=== PATIENT | male | born 1945 ===

== ENCOUNTER 2020-09-28 23:37 | Inpatient (IN) | payer MEDICARE, OTHER ==
[~2020-09-28] VITALS: Ht 177.8 cm; Wt 95.3 kg
[2020-09-29 02:03] LABS: BASOPHILS ABSOLUTE AUTO 0.02 K/mm3 (0.00-0.23); BASOPHILS PERCENT AUTO 0 % (0-2); EOSINOPHILS ABSOLUTE AUTO 0.02 K/mm3 (0.00-0.68); EOSINOPHILS PERCENT AUTO 0 % (0-6); Hematocrit 45.9 % (37.0-53.0); Hemoglobin 15.4 g/dL (13.5-17.5); IMMATURE GRAN ABSOLUTE AUTO 0.05 K/mm3 (0.00-0.10); IMMATURE GRAN PERCENT AUTO 0 % (0-1); LYMPHOCYTES ABSOLUTE AUTO 1.57 K/mm3 (0.84-5.20); LYMPHOCYTES PERCENT AUTO 11 % (21-46); MONOCYTES ABSOLUTE AUTO 0.73 K/mm3 (0.16-1.47); MONOCYTES PERCENT AUTO 5 % (4-13); Mean Corpuscular HGB 29.2 pg (26.0-34.0); Mean Corpuscular HGB Conc 33.6 g/dL (31.5-36.5); Mean Corpuscular Volume 87 fL (80-100); Mean Platelet Volume 9.6 fL (9.1-12.4); NEUTROPHILS ABSOLUTE AUTO 11.58 K/mm3 (1.96-9.15); NEUTROPHILS PERCENT AUTO 83 % (41-73); Platelet Count 219 K/mm3 (150-400); RDW Coefficient Variation 14.7 % (11.7-14.2); RDW Standard Deviation 47.2 fL (35.1-46.3); Red Blood Cell Count 5.28 M/mm3 (4.30-5.90); White Blood Cell Count 13.97 K/mm3 (4.00-11.30)
[2020-09-29 02:21] LABS: Alanine Aminotransfer (ALT/SGP 22 U/L (12-78); Albumin, Blood 4.2 g/dL (3.4-5.0); Albumin/Globulin Ratio 1.2 (0.8-1.8); Alk Phos 66 U/L (50-136); Anion Gap 8 mmol/L (6-16); Aspartate Aminotrans (AST/SGOT 13 U/L (12-37); Bilirubin, Total 0.6 mg/dL (0.1-1.0); Blood Urea Nitrogen 28 mg/dL (8-24); Bun/Creatinine Ratio 23.5 (12.0-20.0); CO2, Blood 23 mmol/L (21-32); Calcium, Blood 8.7 mg/dL (8.5-10.1); Chloride, Blood 106 mmol/L (98-108); Creatinine, Blood 1.19 mg/dL (0.60-1.20); Globulin, Blood 3.5 g/dL (2.2-4.0); Glomerular Filtration Rate >60 (60-); Glucose, Blood 157 mg/dL (70-99); Sodium, Blood 137 mmol/L (136-145); Total Protein, Blood 7.7 g/dL (6.4-8.2)
[2020-09-29] MEDS ORDERED: FAMO40 PO (02:43)
[2020-09-29] MEDS ORDERED: AMLO5 PO (02:44)
[2020-09-29] MEDS ORDERED: Crestor20 MG PO (02:44)
[2020-09-29] MEDS ORDERED: AMARYL1 M1 PO (02:44)
[2020-09-29] MEDS ORDERED: ENTRESTO 49 MG1 EACH PO (02:44)
[2020-09-29] MEDS ORDERED: FURO20 PO (02:45)
[2020-09-29] MEDS ORDERED: FINA5 PO (02:45)
[2020-09-29] MEDS ORDERED: Coreg12.5 MG PO (02:45)
[2020-09-29] MEDS ORDERED: OMEP20ER PO (02:45)
[2020-09-29] MEDS ORDERED: METF500 PO (02:46)
[2020-09-29] MEDS ORDERED: Flomax0.4 MG PO (02:46)
[2020-09-29] MEDS ORDERED: SITA25T2 PO (02:47)
[2020-09-29 02:52] LABS: Source, Urine Clean Catch
[2020-09-29 02:56] LABS: Bilirubin, Urine Neg (Neg); Blood, Urine 2+ (Neg); Glucose Qualitative, Urine 4+ (Neg); Ketones, Urine 3+ (Neg); Leukocyte Esterase, Urine Neg (Neg); Nitrite, Urine Neg (Neg); Protein, Urine 2+ (Neg); Specific Gravity, Urine 1.015 (1.003-1.022); Urobilinogen, Urine NORM (Normal)
[2020-09-29 03:00] LABS: Appearance, Urine Clear (Clear); Color, Urine Yellow (P-Yellow)
[2020-09-29 03:01] LABS: Bacteria Few /hpf; Red Blood Cells, Urine 0-2 /hpf (0-2); Squamous Epithelial Cells Not Seen /hpf (Few); White Blood Cells, Urine 0-2 /hpf (0-5)
--- NOTE | 2020-09-29 06:45 | NUR ---
PT ARRIVED TO FLOOR AT 0630 FROM ED VIA GURNEY. PIVOT TRANSFERRED TO BED, STEADY GAIT. A&OX4, PLEASANT. SON AT BEDSIDE, WENT HOME SHORTLY AFTER PT ARRIVAL. PT IN NO ACUTE DISTRESS, CURRENTLY ON 3L/NC; DENIES SOB. VS TAKEN,WNL. NS INFUSING AT 75ML/HR. HEAT PACK APPLIED TO ABD. REPORT GIVEN TO ROMEL MONAHAN.
[2020-09-29 10:17] LABS: BASOPHILS ABSOLUTE AUTO 0.02 K/mm3 (0.00-0.23); BASOPHILS PERCENT AUTO 0 % (0-2); EOSINOPHILS PERCENT AUTO 0 % (0-6); Hematocrit 44.8 % (37.0-53.0); Hemoglobin 14.6 g/dL (13.5-17.5); IMMATURE GRAN ABSOLUTE AUTO 0.06 K/mm3 (0.00-0.10); IMMATURE GRAN PERCENT AUTO 0 % (0-1); LYMPHOCYTES ABSOLUTE AUTO 1.46 K/mm3 (0.84-5.20); LYMPHOCYTES PERCENT AUTO 9 % (21-46); MONOCYTES ABSOLUTE AUTO 1.16 K/mm3 (0.16-1.47); MONOCYTES PERCENT AUTO 7 % (4-13); Mean Corpuscular HGB Conc 32.6 g/dL (31.5-36.5); Mean Corpuscular Volume 89 fL (80-100); Mean Platelet Volume 9.8 fL (9.1-12.4); NEUTROPHILS ABSOLUTE AUTO 13.82 K/mm3 (1.96-9.15); NEUTROPHILS PERCENT AUTO 84 % (41-73); Platelet Count 186 K/mm3 (150-400); RDW Coefficient Variation 14.9 % (11.7-14.2); RDW Standard Deviation 48.7 fL (35.1-46.3); Red Blood Cell Count 5.04 M/mm3 (4.30-5.90); White Blood Cell Count 16.52 K/mm3 (4.00-11.30)
[2020-09-29 10:36] LABS: Alanine Aminotransfer (ALT/SGP 14 U/L (12-78); Albumin, Blood 3.5 g/dL (3.4-5.0); Albumin/Globulin Ratio 1.1 (0.8-1.8); Alk Phos 55 U/L (50-136); Anion Gap 9 mmol/L (6-16); Aspartate Aminotrans (AST/SGOT 15 U/L (12-37); Bilirubin, Total 0.8 mg/dL (0.1-1.0); Blood Urea Nitrogen 21 mg/dL (8-24); Bun/Creatinine Ratio 21.5 (12.0-20.0); CO2, Blood 20 mmol/L (21-32); Calcium, Blood 8.1 mg/dL (8.5-10.1); Chloride, Blood 110 mmol/L (98-108); Creatinine, Blood 0.98 mg/dL (0.60-1.20); Globulin, Blood 3.3 g/dL (2.2-4.0); Glomerular Filtration Rate >60 (60-); Glucose, Blood 129 mg/dL (70-99); Potassium, Blood 3.9 mmol/L (3.5-5.5); Sodium, Blood 139 mmol/L (136-145); Total Protein, Blood 6.8 g/dL (6.4-8.2)
--- NOTE | 2020-09-29 17:00 | NUR ---
SHIFT SUMMARY PT WOKE FOR BS REPORT, JUST ARRIVING SHORTLY BEFORE START OF SHIFT. A&O, PLEASANT AND CO-OP. ADMITTED FOR POSSIBLE COLITIS. RLQ PAIN AND TENDERNESS, WHICH HAS INCREASED THRU OUT THE DAY. DR CORLEY IN TO SEE PT THIS AM. LATER PLACED ORDERS FOR GI CONSULT. DR BAUMAN NOTIFIED OF CONSULT; INFO GIVEN. PT UPDATED ON PLAN OF CARE. ABD SWOLLEN AND TENDER; " RIGHT SIDE IS THE WORST". USING URINAL AT BS. IVF'S INFUSING PER EMAR. PT'S SON COMING IN TO VISIT THIS AFTERNOON. CALL LT IN REACH. DENIED FURTHER NEEDS AT THIS TIME.
--- NOTE | 2020-09-29 21:15 | NUR ---
PHYSICIAN CORRESPONDENCE STATES 02/23 PAIN. ORDERS FOR IV FENT 25-50MCG Q4P. NEW ORDERS FOR FENT 25-50MCG Q2P AND TO PLACE ON CONT. BIOX.
[2020-09-30 02:47] LABS: BASOPHILS ABSOLUTE AUTO 0.04 K/mm3 (0.00-0.23); BASOPHILS PERCENT AUTO 0 % (0-2); EOSINOPHILS PERCENT AUTO 0 % (0-6); Hematocrit 43.8 % (37.0-53.0); Hemoglobin 14.7 g/dL (13.5-17.5); IMMATURE GRAN PERCENT AUTO 1 % (0-1); LYMPHOCYTES ABSOLUTE AUTO 1.53 K/mm3 (0.84-5.20); LYMPHOCYTES PERCENT AUTO 8 % (21-46); MONOCYTES ABSOLUTE AUTO 1.57 K/mm3 (0.16-1.47); MONOCYTES PERCENT AUTO 9 % (4-13); Mean Corpuscular HGB 29.5 pg (26.0-34.0); Mean Corpuscular HGB Conc 33.6 g/dL (31.5-36.5); Mean Corpuscular Volume 88 fL (80-100); Mean Platelet Volume 10.2 fL (9.1-12.4); NEUTROPHILS PERCENT AUTO 82 % (41-73); Platelet Count 206 K/mm3 (150-400); RDW Coefficient Variation 15.3 % (11.7-14.2); RDW Standard Deviation 49.4 fL (35.1-46.3); Red Blood Cell Count 4.99 M/mm3 (4.30-5.90); White Blood Cell Count 18.14 K/mm3 (4.00-11.30)
[2020-09-30 03:02] LABS: Albumin, Blood 3.3 g/dL (3.4-5.0); Anion Gap 10 mmol/L (6-16); Blood Urea Nitrogen 17 mg/dL (8-24); Bun/Creatinine Ratio 14.5 (12.0-20.0); CO2, Blood 19 mmol/L (21-32); Calcium, Blood 8.2 mg/dL (8.5-10.1); Chloride, Blood 109 mmol/L (98-108); Creatinine, Blood 1.17 mg/dL (0.60-1.20); Glomerular Filtration Rate >60 (60-); Glucose, Blood 171 mg/dL (70-99); Phosphorus, Blood 3.2 mg/dL (2.5-4.9); Potassium, Blood 3.8 mmol/L (3.5-5.5); Sodium, Blood 138 mmol/L (136-145)
--- NOTE | 2020-09-30 03:50 | NUR ---
PATIENT RECIEVED 450 ML OF CONTRAST BEFORE THIS RNs ARRIVED ON SHIFT. AT 0 ASKED TO DRINK SECOND BOTTLE OF CONTRAST AND AT [address] FINISH THE REMAINDER OF THE 450 ML. PATIENT HAD A TOTAL OF 900 ML OF CONTRAST.
--- NOTE | 2020-09-30 07:23 | NUR ---
SHIFT SUMMARY PATIENT TO PCU FROM MEDICAL FLOOR, BEDSIDE REPORT FROM MARGRET URENA. PATIENT TO ROOM @0158. PATIENT IS ALERT AND ORIENTED X4. COMPLAINING OF SEVERE ABDOMINAL PAIN, MEDICATED PER EMAR. PATIENT HAVING CONSISTANT RUNS OF VTACH, BP WOULD DROP DURING THIS TIME BUT RECOVER. PATIENT DENIED ANY CP/PRESSURE OR DISCOMFORT. EKG DONE AND PATIENT STARTED ON AMIODARONE. NG TUBE INSERTED BY NYA URENA. NG TUBE TO LOW INTERMITTEN SUCTION. PATIENT URINATING IN URINAL. 02 SATS 94% ON AIRVO. CALL LIGHT IN REACH.
[2020-09-30] MEDS ORDERED: ASPI81CH PO (12:42)
[2020-09-30] MEDS ORDERED: JARDIANCE10 MG PO (12:42)
[2020-09-30] MEDS ORDERED: VITAMIN D325 MC3 PO (12:43)
[2020-09-30] MEDS ORDERED: B-121000 MC7 PO (12:47)
[2020-09-30] MEDS ORDERED: NITR.4SL SL (12:48)
--- NOTE | 2020-09-30 18:10 | NUR ---
SHIFT SUMMARY PT ALERT AND ORIENTED. VS STABLE. O2 SATS REMAIN ABOVE 90% ON AIRVO WITH 60L AND 60%FIO2. BP STABLE. PT HAS NOT HAD ANY RUNS OF VTACH SINCE 829. ABD SEVERELY DISTENDED AND TENDER TO PALPATION. PLAN FOR PT TO START PREP FOR COLONOSCOPY TONIGHT. NG TUBE REMOVED THIS AFTERNOON AND DID NOT HAVE ANY OUTPUT THIS SHIFT. PT ABLE TO VOID IN URINAL. AMIO GTT INFUSING PER ORDERS. WILL CONTINUE TO MONITOR CLOSELY AND REPORT TO ONCOMING RN. CALL LIGHT IN REACH.
--- NOTE | 2020-10-01 02:24 | NUR ---
PATIENT C/O SEVERE CRAMPING, NAUSEA REFUSING TO COMPLETE THE GOLYTE NOC ONCJOSE MD WAS CALLED AND NO FURTHER INTERVENTIONS AT THIS TIME, CONTROL PAIN WITH CURRENTLY PRN PAIN MEDICATION.
[2020-10-01 03:55] LABS: BASOPHILS ABSOLUTE AUTO 0.03 K/mm3 (0.00-0.23); BASOPHILS PERCENT AUTO 0 % (0-2); EOSINOPHILS ABSOLUTE AUTO 0.01 K/mm3 (0.00-0.68); EOSINOPHILS PERCENT AUTO 0 % (0-6); Hematocrit 45.1 % (37.0-53.0); Hemoglobin 14.6 g/dL (13.5-17.5); IMMATURE GRAN ABSOLUTE AUTO 0.13 K/mm3 (0.00-0.10); IMMATURE GRAN PERCENT AUTO 1 % (0-1); LYMPHOCYTES ABSOLUTE AUTO 1.47 K/mm3 (0.84-5.20); LYMPHOCYTES PERCENT AUTO 8 % (21-46); MONOCYTES PERCENT AUTO 9 % (4-13); Mean Corpuscular HGB 28.9 pg (26.0-34.0); Mean Corpuscular HGB Conc 32.4 g/dL (31.5-36.5); Mean Corpuscular Volume 89 fL (80-100); Mean Platelet Volume 10.1 fL (9.1-12.4); NEUTROPHILS ABSOLUTE AUTO 14.88 K/mm3 (1.96-9.15); NEUTROPHILS PERCENT AUTO 82 % (41-73); Platelet Count 208 K/mm3 (150-400); RDW Coefficient Variation 15.5 % (11.7-14.2); RDW Standard Deviation 50.6 fL (35.1-46.3); Red Blood Cell Count 5.06 M/mm3 (4.30-5.90); White Blood Cell Count 18.12 K/mm3 (4.00-11.30)
[2020-10-01 04:21] LABS: Alanine Aminotransfer (ALT/SGP 15 U/L (12-78); Albumin, Blood 3.1 g/dL (3.4-5.0); Albumin/Globulin Ratio 0.8 (0.8-1.8); Alk Phos 60 U/L (50-136); Anion Gap 9 mmol/L (6-16); Aspartate Aminotrans (AST/SGOT 8 U/L (12-37); Bilirubin, Total 0.9 mg/dL (0.1-1.0); Blood Urea Nitrogen 23 mg/dL (8-24); Bun/Creatinine Ratio 22.8 (12.0-20.0); CO2, Blood 22 mmol/L (21-32); Calcium, Blood 8.7 mg/dL (8.5-10.1); Chloride, Blood 105 mmol/L (98-108); Creatinine, Blood 1.01 mg/dL (0.60-1.20); Glomerular Filtration Rate >60 (60-); Glucose, Blood 170 mg/dL (70-99); Potassium, Blood 3.6 mmol/L (3.5-5.5); Sodium, Blood 136 mmol/L (136-145); Total Protein, Blood 7.1 g/dL (6.4-8.2)
[2020-10-01 04:33] LABS: C-REACTIVE PROTEIN, EXT RANGE >19.000 mg/dL (0.000-0.300)
[2020-10-01 04:52] LABS: SARS-Cov-2 (COVID-19) PCR, MMC NEGATIVE (NEGATIVE)
--- NOTE | 2020-10-01 09:10 | NUR ---
DRANK FIRST BOTTLE BOWEL PREP.
--- NOTE | 2020-10-01 10:00 | NUR ---
SECOND BOTTLE OF BOWEL PREP DRANK BY PT.
[2020-10-01 12:32] LABS: International Normalized Ratio 1.12
--- NOTE | 2020-10-01 14:58 | NUR ---
HEPARIN BEING HELD UNTIL AFTER ENDOSCOPE PER GI DOCTOR.
--- NOTE | 2020-10-01 15:03 | NUR ---
PT TRANSFERED TO [facility] VIA GURNY FROM PCU. PT WITH O2 SATS 87% ON NONREBREATHER 10 LPM. BP 93/58. HR 82. DR. JAVIER ASSESSING PT TO SEE IF HE IS STABEL TO PROCEED WITH PROCEDURE.
--- NOTE | 2020-10-01 15:16 | NUR ---
DR. JAVIER CONSULTED WITH DR. BUSTOS AND PT'S PROCEDURE IS CANCELLED UNTIL HIS RESPIRATORY SYSTEM IS STABLIZED.
--- NOTE | 2020-10-01 15:20 | NUR ---
10/01/20 1520 Ml Mariscal PROCEDURE CANCELLED DUE TO PT NOTED TO HAVE PE PER CT.
--- NOTE | 2020-10-01 16:37 | NUR ---
SHIFT SUMMARY; ASSUMED CARE AT 0700. A/A/OX4. AIR VO IN PLACE AT 60L 60% MAINTAING SATS OF 92-93%. ABDOMEN DISTENDED AND FIRM. PT REPORTS NO BM X4 DAYS. DID NOT COMPLETE GOLYTLY PREP ORDERED. PT STATES CAUSED CRAMPING, PAIN AND COULD NOT TOLERATE DRINKING IT. GI NOTIFIED, SUREPREP ORDERED. PT AGREES TO DRINK. BOWEL PREP COMPLETE AT 1000. UP TO COMMODE FOR LARGE BM IN MID MORNING. SEVERAL BM THROUGHOUT DAY REMAINING SOLID TO BROWN LOOSE STOOL. CT SCAN COMPLETED FOR PE STUDY. NOTIFIED OF PE BY DR. DALE. HEPARIN ORDERED. PER DR. DALE NOTIFIED GI DOCTOR WHO REQUESTED HOLDING HEPARIN UNTIL ENDO COMPLETE. TAKEN TO DAY SURGERY FOR SCOPE AT 1445. NOTIFIED BY DAY SURGERY STAFF AT APPROX 1530 THAT THEY WERE UNABLE TO DO PROCEDURE DUE TO RESPIRATORY STATUS. PT RETURNED TO ROOM WITH SATS 87% AND LABORED BREATHING. RT TO ROOM. INCREASED AIR VO TO 90% ON 60L. TRANSFER TO ICU INTIATED. DR. EDGE TO ROOM. REPORT GIVEN TO ROMEL WAN. TRANSFERRED TO ICU 15.
--- NOTE | 2020-10-01 16:40 | NUR ---
TRANSFER TO ICU BEDSIDE REPORT RECIEVED. PT ARRIVED TO ICU 15 VIA BED AT 1610. PT IS AWAKE, ALERT, AND ORIENTED. PT ON AIRVO 60L, FIO2 95%. PT SPO2 88-90'S. LS COURSE THROUGHOUT. BP STABLE. DR MCKEON AT BEDSIDE. EKG DONE, VENOUS DUPLEX IN PROGRESS, ECHO IN PROGRESS. HEPARIN INFUSING AT 15 UNITS/KG/HR. WILL CONTINUE TO MONITOR.
--- NOTE | 2020-10-01 19:29 | NUR ---
INTUBATION/SHIFT SUMMARY PT CONTINUED TO BE HYPOXIC WITH INCREASED WORK OF BREATHING AFTER TRANSFER TO ICU. DISCUSSION BETWEEN DR MCKEON, DR DE LA TORRE, AND DR MENDIOLA. DECISION MADE TO INTUBATE PT. PT MED WITH 20 MG ETOMIDATE, 20 MG ROCURONIUM, AND 80 MCG OF PROPOFOL AT 1808. 8.0 ETT PLACED AT 24 CM AT THE LIP BY DR MCKEON. BILAT BREATH SOUNDS AND CO2 COLOR CHANGE NOTED. LEVOPHED STARTED AT 10 MCG/MIN THROUGH PERIPHERAL IV. CENTRAL LINE THEN PLACED TO RIGHT IJ. OGT PLACED. CHEST XRAY CONFIRMATION DONE. PT REMAINS HYPOTENSIVE WITH SBP 60'S. DR MCKEON AT BEDSIDE. LEVOPHED TITRATED UP TO 30 MCG/MIN AT THIS TIME. LR BOLUS INFUSING, HEPARIN GTT INFUSING, AND PROPOFOL INFUSING. SEE FLOWSHEET FOR GTT TITRATIONS. PT WITH INTERMITTENT RUNS OF VTACH. DR MCKEON AWARE. SBW RESTRAINTS IN PLACE. PT MOVING ALL EXTREMITIES. BEDSIDE REPORT GIVEN TO NOC SHIFT RN.
--- NOTE | 2020-10-01 20:12 | NUR ---
ASSUMPTION OF CARE PT INTUBATED AND SEDATED. VENT SETTINGS AC 14/580/10/100%. GTTS INFUSING: PROPOFOL @ 50 MCG, LEVOPHED @ 24 MCG, VASOPRESSIN @ 2.4 ML/HR, HEPARIN @ 15 UNITS. HR 50'S, SBP 140'S, O2 SAT 95%. STREETER PLACED THIS SHIFT, PATENT AND DRAINING YELLOW URINE TO GRAVITY. WHEN PT WAKES, ATTEMPTS TO SIT UP IN BED AND ATTEMPTS TO REACH FOR ETT. PT NOT FOLLOWING ANY PURPOSEFUL COMMANDS AT THIS TIME, WILL CONTINUE TO MONITOR.
--- NOTE | 2020-10-01 20:57 | NUR ---
UPDATE SPOKE WITH DR. MCKEON REGARDING AMIODARONE BEING ON STANDBY DUE TO HR 53-55 WITH OCASSIONAL PAUSES, NO ECTOPY NOTICED SINCE INCREASE IN SEDATION; OK PER DR. MCKEON TO CONTINUE ON STANDBY. NOTIFIED ABOUT INCREASE IN SEDATION DUE TO AGITATION AND ATTEMPTING TO GRAB ETT. ORDER PLACED FOR 1L LR BOLUS, THEN NO MORE FLUIDS. WILL DRAW STAT 2200 LABS AND TOUCH BASE AFTER RESULTED.
[2020-10-01 22:08] LABS: Base Excess Venous -5.5 mmol/L; Bicarbonate Venous 20.1 mmol/L (24.0-30.0); PO2 Venous 53.2 mmHg (38-42); pH Blood Venous 7.34 (7.34-7.37)
[2020-10-01 22:15] LABS: BASOPHILS ABSOLUTE AUTO 0.03 K/mm3 (0.00-0.23); BASOPHILS PERCENT AUTO 0 % (0-2); EOSINOPHILS ABSOLUTE AUTO 0.01 K/mm3 (0.00-0.68); EOSINOPHILS PERCENT AUTO 0 % (0-6); Hematocrit 39.5 % (37.0-53.0); Hemoglobin 13.2 g/dL (13.5-17.5); IMMATURE GRAN ABSOLUTE AUTO 0.24 K/mm3 (0.00-0.10); IMMATURE GRAN PERCENT AUTO 1 % (0-1); LYMPHOCYTES ABSOLUTE AUTO 1.92 K/mm3 (0.84-5.20); LYMPHOCYTES PERCENT AUTO 10 % (21-46); MONOCYTES ABSOLUTE AUTO 2.18 K/mm3 (0.16-1.47); MONOCYTES PERCENT AUTO 12 % (4-13); Mean Corpuscular HGB 29.1 pg (26.0-34.0); Mean Corpuscular HGB Conc 33.4 g/dL (31.5-36.5); Mean Corpuscular Volume 87 fL (80-100); Mean Platelet Volume 10.3 fL (9.1-12.4); NEUTROPHILS ABSOLUTE AUTO 14.56 K/mm3 (1.96-9.15); NEUTROPHILS PERCENT AUTO 77 % (41-73); Platelet Count 291 K/mm3 (150-400); RDW Coefficient Variation 15.6 % (11.7-14.2); RDW Standard Deviation 49.7 fL (35.1-46.3); Red Blood Cell Count 4.53 M/mm3 (4.30-5.90); White Blood Cell Count 18.94 K/mm3 (4.00-11.30)
[2020-10-01 22:36] LABS: Alanine Aminotransfer (ALT/SGP 13 U/L (12-78); Albumin, Blood 2.5 g/dL (3.4-5.0); Albumin/Globulin Ratio 0.8 (0.8-1.8); Alk Phos 54 U/L (50-136); Anion Gap 9 mmol/L (6-16); Aspartate Aminotrans (AST/SGOT 12 U/L (12-37); Bilirubin, Total 0.8 mg/dL (0.1-1.0); Blood Urea Nitrogen 35 mg/dL (8-24); Bun/Creatinine Ratio 28.5 (12.0-20.0); CO2, Blood 24 mmol/L (21-32); Calcium, Blood 8.1 mg/dL (8.5-10.1); Chloride, Blood 108 mmol/L (98-108); Creatinine, Blood 1.23 mg/dL (0.60-1.20); Globulin, Blood 3.3 g/dL (2.2-4.0); Glomerular Filtration Rate >60 (60-); Glucose, Blood 285 mg/dL (70-99); Magnesium, Blood 2.3 mg/dL (1.6-2.4); Potassium, Blood 3.3 mmol/L (3.5-5.5); Sodium, Blood 141 mmol/L (136-145); Total Protein, Blood 5.8 g/dL (6.4-8.2); Troponin I <0.015 ng/mL (0.000-0.040)
--- NOTE | 2020-10-01 22:56 | NUR ---
UPDATE SPOKE WITH DR. MCKEON AFTER STAT 2200 LABS RESULTED. NEW ORDERS PLACED FOR 40 mEq OF POTASSIUM, ELECTROLYTE PROTOCOL, AND PHOS TO BE ADDED TO AM LABS. PER DR. MCKEON NO WEANING IN AM.
--- NOTE | 2020-10-02 05:04 | NUR ---
SHIFT SUMMARY PT REMAINS INTUBATED/SEDATED. WHEN SEDATION IS DECREASED PT GETS VERY AGITATED, ATTEMPTING TO SIT UP IN BED TO REACH FOR ETT. PT INTERMITTENTLY FOLLOWS SOME COMMANDS, RESPONDS TO VERBAL STIMULI. RECTAL TUBE PLACED AFTER MULTIPLE WATERY STOOLS. TEMP STREETER PATENT AND DRAINING TO GRAVITY. HR 40-50'S WITH OCASSIONAL ECTOPY, HAD A FEW RUNS OF VTACH DURING SHIFT; AMIODARONE ON STANDBY. LEVOPHED AT 10 MCG AND VASOPRESSIN AT 0.04 MCG TO MAINTAIN SBP >90. VENT SETTINGS AC 14/580/10/70%, SPO2 94%. 80 mEq KCL GIVEN THIS SHIFT. PROPOFOL INFUSING AT 50 MCG AND HEPARIN AT 12 UNITS.
[2020-10-02 05:10] LABS: BASOPHILS ABSOLUTE AUTO 0.03 K/mm3 (0.00-0.23); BASOPHILS PERCENT AUTO 0 % (0-2); EOSINOPHILS ABSOLUTE AUTO 0.05 K/mm3 (0.00-0.68); EOSINOPHILS PERCENT AUTO 0 % (0-6); Hematocrit 39.5 % (37.0-53.0); Hemoglobin 13.1 g/dL (13.5-17.5); IMMATURE GRAN PERCENT AUTO 1 % (0-1); LYMPHOCYTES ABSOLUTE AUTO 2.49 K/mm3 (0.84-5.20); LYMPHOCYTES PERCENT AUTO 16 % (21-46); MONOCYTES ABSOLUTE AUTO 1.61 K/mm3 (0.16-1.47); MONOCYTES PERCENT AUTO 10 % (4-13); Mean Corpuscular HGB 29.4 pg (26.0-34.0); Mean Corpuscular HGB Conc 33.2 g/dL (31.5-36.5); Mean Corpuscular Volume 89 fL (80-100); Mean Platelet Volume 10.4 fL (9.1-12.4); NEUTROPHILS ABSOLUTE AUTO 11.41 K/mm3 (1.96-9.15); NEUTROPHILS PERCENT AUTO 73 % (41-73); Platelet Count 279 K/mm3 (150-400); RDW Coefficient Variation 15.7 % (11.7-14.2); RDW Standard Deviation 51.3 fL (35.1-46.3); Red Blood Cell Count 4.46 M/mm3 (4.30-5.90); White Blood Cell Count 15.69 K/mm3 (4.00-11.30)
[2020-10-02 05:24] LABS: Alanine Aminotransfer (ALT/SGP 16 U/L (12-78); Albumin, Blood 2.6 g/dL (3.4-5.0); Albumin/Globulin Ratio 0.8 (0.8-1.8); Alk Phos 57 U/L (50-136); Anion Gap 11 mmol/L (6-16); Aspartate Aminotrans (AST/SGOT 10 U/L (12-37); Bilirubin, Total 0.5 mg/dL (0.1-1.0); Blood Urea Nitrogen 34 mg/dL (8-24); Bun/Creatinine Ratio 29.3 (12.0-20.0); CO2, Blood 21 mmol/L (21-32); Calcium, Blood 8.1 mg/dL (8.5-10.1); Chloride, Blood 108 mmol/L (98-108); Creatinine, Blood 1.16 mg/dL (0.60-1.20); Globulin, Blood 3.3 g/dL (2.2-4.0); Glomerular Filtration Rate >60 (60-); Glucose, Blood 278 mg/dL (70-99); Phosphorus, Blood 2.3 mg/dL (2.5-4.9); Potassium, Blood 3.1 mmol/L (3.5-5.5); Sodium, Blood 140 mmol/L (136-145); Total Protein, Blood 5.9 g/dL (6.4-8.2)
--- NOTE | 2020-10-02 10:26 | NUR ---
ASSUMPTION OF CARE ASSUMED CARE OF THIS PT. PT REMAINS INTUBATED WITH VENT SETTINGS AC 14/. CURRENTLY RECEIVING HEPARIN 15UNITS/KG/HR, LEVOPHED 9MCG/MIN, VASOPRESSIN 0.04UNITS/MIN, AND PROPOFOL 50MCG/KG/MIN. PT IN BILAT SOFT WRIST RESTRAINTS. OPENS EYES TO VERBAL STIMULI, ABLE TO SQUEEZE HANDS. DR HOWELL AT BEDSIDE FOR EVAL, DECREASED FIO2 TO 50%. PT TOLERATING WELL. SEE SHIFT ASSESSMENT.
--- NOTE | 2020-10-02 14:01 | NUR ---
SPOKE WITH PT'S AND UPDATED HER WITH PT STATUS AND PLAN OF CARE. PT'S CONCERNED ABOUT PT'S PROGRESS AND STATES SHE IS "45 MINUTES FROM THE HOSPITAL" AND WISHES TO SPEAK WITH PHYSICIAN. THIS NURSE WILL RELAY MESSAGE PHYSICIAN IS AVAILABLE.
--- NOTE | 2020-10-02 15:17 | NUR ---
PT'S AND STEP-DAUGHTER AT BEDSIDE. DR. MCKEON UPDATING FAMILY.
--- NOTE | 2020-10-02 18:02 | NUR ---
SHIFT SUMMARY PT REMAINS INTUBATED AT THIS TIME. VENT SETTINGS AC 14/580/8/45. PT OPENS EYES WHEN REPOSITIONING AND TO SOME VERBAL STIMULI. PT RECEIVING HEPARIN 15UNITS/KG/HR, LEVOPHED 6MCG/MIN, VASOPRESSIN 0.04UNITS/MIN, AND PROPOFOL 50MCG/KG/MIN. PT APPEARS COMFORTABLE AT THIS TIME. CBGS HAVE BEEN IN 200S AND HAS BEEN GIVEN INSULIN PER SLIDING SCALE. ABDOMEN REMAINS DISTENDED AND FIRM. STREETER IN PLACE AND DRAINING DARK YELLOW URINE WITH SEDIMENT. SHIFT OUTPUT OF 1200ML. RECTAL TUBE IN PLACE. AND STEPDAUGHTER AT BEDSIDE AND UPDATED ON CONDITION AND PLAN OF CARE BY DR HOWELL. PLAN TO WEAN PT OFF LEVOPHED AND ATTEMPT SPONTANEOUS BREATHING TRIAL IN AM. WILL REPORT TO ONCOMING RN.
--- NOTE | 2020-10-02 19:50 | NUR ---
ASSUMPTION OF CARE PT INTUBATED AND SEDATED. VENT SETTINGS AC 14/580/8/40%. OPENS EYES TO VERBAL STIMULI AND SQUEEZES HANDS TO COMMAND. CURRENTLY RECEIVING HEPARIN @ 15 UNITS/KG/HR, VASOPRESSIN @ 0.04 UNITS/MIN, LEVOPHED @ 6 MCG/KG/MIN, PROPOFOL @ 50 MCG/KG/MIN, AND TKO NS. STREETER PATENT AND DRAINING TO GRAVITY. RECTAL TUBE STILL IN PLACE. HR 40-50'S, SBP >90, SPO2 >90%.
[2020-10-03 04:17] LABS: BASOPHILS ABSOLUTE AUTO 0.03 K/mm3 (0.00-0.23); BASOPHILS PERCENT AUTO 0 % (0-2); EOSINOPHILS ABSOLUTE AUTO 0.15 K/mm3 (0.00-0.68); EOSINOPHILS PERCENT AUTO 2 % (0-6); Hematocrit 36.1 % (37.0-53.0); IMMATURE GRAN ABSOLUTE AUTO 0.05 K/mm3 (0.00-0.10); IMMATURE GRAN PERCENT AUTO 1 % (0-1); LYMPHOCYTES PERCENT AUTO 21 % (21-46); MONOCYTES ABSOLUTE AUTO 1.15 K/mm3 (0.16-1.47); MONOCYTES PERCENT AUTO 12 % (4-13); Mean Corpuscular HGB 29.3 pg (26.0-34.0); Mean Corpuscular HGB Conc 33.2 g/dL (31.5-36.5); Mean Corpuscular Volume 88 fL (80-100); Mean Platelet Volume 10.2 fL (9.1-12.4); NEUTROPHILS ABSOLUTE AUTO 6.11 K/mm3 (1.96-9.15); NEUTROPHILS PERCENT AUTO 64 % (41-73); Platelet Count 225 K/mm3 (150-400); RDW Coefficient Variation 15.9 % (11.7-14.2); RDW Standard Deviation 51.8 fL (35.1-46.3); Red Blood Cell Count 4.09 M/mm3 (4.30-5.90); White Blood Cell Count 9.49 K/mm3 (4.00-11.30)
[2020-10-03 04:38] LABS: Alanine Aminotransfer (ALT/SGP 15 U/L (12-78); Albumin, Blood 2.4 g/dL (3.4-5.0); Albumin/Globulin Ratio 0.7 (0.8-1.8); Alk Phos 51 U/L (50-136); Anion Gap 8 mmol/L (6-16); Aspartate Aminotrans (AST/SGOT 15 U/L (12-37); Bilirubin, Total 0.4 mg/dL (0.1-1.0); Blood Urea Nitrogen 26 mg/dL (8-24); Bun/Creatinine Ratio 27.3 (12.0-20.0); CO2, Blood 25 mmol/L (21-32); Calcium, Blood 7.8 mg/dL (8.5-10.1); Chloride, Blood 107 mmol/L (98-108); Creatinine, Blood 0.95 mg/dL (0.60-1.20); Globulin, Blood 3.3 g/dL (2.2-4.0); Glomerular Filtration Rate >60 (60-); Glucose, Blood 206 mg/dL (70-99); Magnesium, Blood 2.4 mg/dL (1.6-2.4); Phosphorus, Blood 2.8 mg/dL (2.5-4.9); Potassium, Blood 2.9 mmol/L (3.5-5.5); Sodium, Blood 140 mmol/L (136-145); Total Protein, Blood 5.7 g/dL (6.4-8.2)
--- NOTE | 2020-10-03 07:31 | NUR ---
SHIFT SUMMARY PT REMAINS INTUBATED AND SEDATED. VENT SETTINGS AC 14/580/8/40%. PT CURRENTLY RECEIVING PROPOFOL @ 50 MCG, HEPARIN @ 15 UNITS, VASOPRESSIN @ 0.04 UNITS/MIN. LEVOPHED HAS BEEN ON STANDBY SINCE 214. HR HAS REMAINED 40-50'S WITH OCASSIONAL ECTOPY AND OCASSIONAL 3-4 BEAT RUNS OF VTACH. PT ABLE TO FOLLOW COMMANDS THROUGHOUT SHIFT.
--- NOTE | 2020-10-03 12:45 | NUR ---
REASSESSMENT PT REMAINS INTUBATED AND SEDATED. WITH SEDATION HE STILL WAKES UP EASILY, FOLLOWS SIMPLE COMMANDS. HIS LUNGS GOT WHEEZY LATE THIS MORNING, RT AWARE AND GOT TREATMENTS FOR PT. PT HAD 2 EPISODES THIS MORNING WHERE HIS OXYGEN SATURATIONS DROPPED TO 80% WITHOUT ANY COUGHING OR SOMETHING PROVOKING IT. REQUIRED OXYGEN TO BE TURNED UP TO 60% fio2 TO RECOVER. CURRENTLY TURNED DOWN TO 55%. PT IS SB WITH PVCs. VASOPRESSIN WAS OFF FOR ABOUT 2 HOURS WITH BP STABLE BEFORE IT DROPPED AGAIN SO VASOPRESSIN RESTARTED. ABDOMEN REMAINS DISTENDED, SOFT, VERY HYPOACTIVE BOWEL TONES. OG TO lis WHEN NOT CLAMPED FOR MED ADMINISTRATION. RECTAL TUBE WITH LIQUID STOOL. STREETER WITH CL YELLOW URINE. PT'S AT THE BEDSIDE CURRENTLY. UPDATED HER ON PLAN OF CARE. CONTINUING TO MONITOR.
--- NOTE | 2020-10-03 18:38 | NUR ---
SHIFT SUMMARY PT REMAINED INTUBATED AND SEDATED THIS SHIFT. OXYGEN INITIALLY HAD TO BE TITRATED UP THIS MORNING, BUT WAS TITRATED BACK DOWN THIS AFTERNOON. HE HAD A MODERATE AMT OF THICK RAMIREZ SPUTUM THIS AFTERNOON. ETT REPOSITIONED THIS AFTERNOON BY RT PER DR. MCKEON'S INSTRUCTIONS. LUNGS WERE CLEAR THIS EVENING. SINUS SULLY WITH RATE IN THE 50S. VASOPRESSIN INFUSING PT DIDN'T TOLERATE HAVING IT TURNED OFF. OG TO LIS THIS AFTERNOON. ABDOMEN REMAINS DISTENDED, SLIGHTLY FIRMER THIS EVENING COMPARED TO THIS MORNING. LIQUID STOOL IN RECTAL TUBE. UPDATED PT'S MULTIPLE TIMES THROUGHOUT THE SHIFT. ALSO SPENT ABOUT 15 MINUTES ON THE PHONE SPEAKING WITH PT'S STEPDAUGHTER ANSWERING HER QUESTIONS. DR. MCKEON ALSO SPOKE ON THE PHONE WITH HER SEPARATELY.
--- NOTE | 2020-10-03 20:00 | NUR ---
ASSUMED CARE OF PT AT 1915. REPORT RECEIVED. PT PRESENTS IN BED VENTED, - AC 14, Tv 580, FIO2 45 %, PEEP 5. PT TOLERATING THIS WELL WITH 50 MCG'S PROPOFOL/KG/MIN. VASOPRESSIN INFUSING WHICH ALLOWS MAP > 60. LEVOPHED REMAINS ON STANDBY. WILL REVIEW CHART AND PLAN OF CARE FOR THIS PT.
--- NOTE | 2020-10-04 00:08 | NUR ---
FULL BEDBATH DONE FOR THIS PT. NOTED: HAS HAD SOME LEAKAGE AROUND [facility]. THIS CLEANED. SECONDARY TO CLAY AREA STARTING TO HAVE SOME BLANCHABLE REDNESS. PLACED MEPILEX DRESSING PLACED OVER AREA FOR PROTECTION. FIO2 PER VENT HAS BEEN DECREASED TO 40 PERCENT. PT MAINTAINS > 90 PERCENT SATURATION. HAVE PLACED VASOPRESSIN ON HOLD. BLOOD PRESSURES HAVE BEEN SOMEWHAT LOW BUT ADEQUATE. PT'S DAUGHTER HAS CALLED IN TO CHECK ON PT SEVERAL TIMES THIS NIGHT. UPDATES GIVEN. WILL CONTINUE TO MONITOR PT,
--- NOTE | 2020-10-04 03:58 | NUR ---
REPORT GIVEN TO ROMEL FONG. PT TO TRANSFER TO ROOM 310 UNDER MEDICAL FLOOR STATUS.
[2020-10-04 04:58] LABS: BASOPHILS ABSOLUTE AUTO 0.02 K/mm3 (0.00-0.23); BASOPHILS PERCENT AUTO 0 % (0-2); EOSINOPHILS ABSOLUTE AUTO 0.21 K/mm3 (0.00-0.68); EOSINOPHILS PERCENT AUTO 2 % (0-6); Hematocrit 35.9 % (37.0-53.0); Hemoglobin 11.8 g/dL (13.5-17.5); IMMATURE GRAN ABSOLUTE AUTO 0.05 K/mm3 (0.00-0.10); IMMATURE GRAN PERCENT AUTO 1 % (0-1); LYMPHOCYTES ABSOLUTE AUTO 1.64 K/mm3 (0.84-5.20); LYMPHOCYTES PERCENT AUTO 19 % (21-46); MONOCYTES ABSOLUTE AUTO 1.09 K/mm3 (0.16-1.47); MONOCYTES PERCENT AUTO 13 % (4-13); Mean Corpuscular HGB 29.2 pg (26.0-34.0); Mean Corpuscular HGB Conc 32.9 g/dL (31.5-36.5); Mean Corpuscular Volume 89 fL (80-100); Mean Platelet Volume 9.7 fL (9.1-12.4); NEUTROPHILS ABSOLUTE AUTO 5.57 K/mm3 (1.96-9.15); NEUTROPHILS PERCENT AUTO 65 % (41-73); Platelet Count 208 K/mm3 (150-400); RDW Coefficient Variation 15.8 % (11.7-14.2); RDW Standard Deviation 51.6 fL (35.1-46.3); Red Blood Cell Count 4.04 M/mm3 (4.30-5.90); White Blood Cell Count 8.58 K/mm3 (4.00-11.30)
[2020-10-04 05:17] LABS: Alanine Aminotransfer (ALT/SGP 13 U/L (12-78); Albumin, Blood 2.2 g/dL (3.4-5.0); Albumin/Globulin Ratio 0.6 (0.8-1.8); Alk Phos 48 U/L (50-136); Anion Gap 7 mmol/L (6-16); Aspartate Aminotrans (AST/SGOT 15 U/L (12-37); Bilirubin, Total 0.5 mg/dL (0.1-1.0); Blood Urea Nitrogen 17 mg/dL (8-24); Bun/Creatinine Ratio 20.9 (12.0-20.0); CO2, Blood 23 mmol/L (21-32); Calcium, Blood 7.8 mg/dL (8.5-10.1); Chloride, Blood 112 mmol/L (98-108); Creatinine, Blood 0.81 mg/dL (0.60-1.20); Globulin, Blood 3.5 g/dL (2.2-4.0); Glomerular Filtration Rate >60 (60-); Glucose, Blood 154 mg/dL (70-99); Potassium, Blood 3.2 mmol/L (3.5-5.5); Sodium, Blood 142 mmol/L (136-145); Total Protein, Blood 5.7 g/dL (6.4-8.2)
--- NOTE | 2020-10-04 06:36 | NUR ---
HAVE BEEN ABLE TO STOP THE VASOPRESSIN WHEREAS BLOOD PRESSURES REMAIN WNL. MAP >60. SEDATION VACATION DONE EARLIER IN NIGHT. PT DOES BECOME ANXIOUS DOES REACH TOWARDS HIS ETT WHEN RESTRAINTS REMOVED. REDIRECTED PT. HEPARIN DRIP CONTINUES PER PHARMACY. NO S/S BLEEDING. KENY HAS 400 ML WATERY BROWN STOOL. WILL CONTINUE TO MONITOR PT, AND WILL REPORT OFF TO ONCOMING RN.
--- NOTE | 2020-10-04 08:00 | NUR ---
INITIAL ASSESSMENT PATIENT INTUBATED AND SEDATED. PATIENT RESPONDING TO VERBAL STIMULI WITH OPENING OF EYES. NOT TRACKING OR FOLLOWING ANY SIMPLE COMMANDS AT THIS TIME. PATIENT HAS WEAK, GROSS MOVEMENTS. PATIENT AFEBRILE. NO SIGNS OF PAIN NOTED. PATIENT SATTING 90% AND GREATER ON VENT SETTINGS OF AC 14, TV 580, PEEP 5, 40% FIO2. LUNGS CLEAR THROUGHOUT AFTER SUCTIONING. MODERATE AMOUNT OF THICK, YELLOW SPUTUM BEING SUCTIONED FROM ETT. PATIENT IN SB/ SR, FIRST DEGREE BLOCK, BBB, PROLONGED QT, AND WITH PVCS. HR 50S TO 60S. SBP 120S TO 140S. 1+ EDEMA NOTED TO BILAT FEET AND ANKLES. ABDOMEN MILDLY DISTENDED, SOFT, WITH TYMPANIC BS NOTED. LUMP UNDER SKIN NOTED ON ABD ON UPPER, R SIDE OF MIDLINE. OG TO LIS- MINIMAL GREEN DRAINAGE NOTED. RECTAL TUBE IN PLACE DRAINING DARK GREEN, LIQUID STOOL. TEMP PROBE STREETER IN PLACE DRAINING YELLOW COLORED URINE WITH SEDIMENT NOTED. SKIN APPEARS C/D/I. PATIENT BEING REPOSITIONED Q2H AND PRN. PROPOFOL INFUSING AT 50 MCG/ KG/ MINUTE, HEPARIN AT 15 UNITS/ KG/ HOUR, NS TKO. VASOPRESSIN AND LEVOPHED ON SB. BED LOW, CALL LIGHT IN REACH. WILL CONTINUE TO MONITOR PATIENT FREQUENTLY THROUGHOUT SHIFT.
--- NOTE | 2020-10-04 10:00 | NUR ---
DR. HINTON INFORMED OF POTASSIUM OF 3.2. INFORMED THAT PATIENT IN SB TO SR, WITH BBB, FIRST DEGREE BLOCK, PROLONGED QT AND PVCS. INFORMED THAT PATIENT HAS SOFT LUMP ON ABD ON UPPER RIGHT MIDLINE. NO ORDERS RECEIVED AT THIS TIME.
--- NOTE | 2020-10-04 12:00 | NUR ---
PATIENT AFEBRILE. PATIENT HAS NO SIGNS OF PAIN NOTED. PATIENT REMAINS SATTING 90% AND GREATER ON SAME VENT SETTINGS. HR 50S TO 60S. SBP LOW 100S TO 130S. BLOOD SUGAR OF 153; COVERAGE GIVEN. NO OTHER ACUTE CHANGES TO NOTE ON AT THIS TIME. WILL CONTINUE TO MONITOR.
--- NOTE | 2020-10-04 14:28 | NUR ---
DR. HINTON NOTIFIED THAT PATIENT HAD LONG RUN OF V-TACH. DR. HINTON SHOWN PHOTOFINISHING LABORATORY WORKER STRIP. STATED HE WOULD ORDER BETA VANCE, MAGNESIUM AND TO PLACE BACK ON SEDATION AND AC SETTINGS FOR THE DAY.
--- NOTE | 2020-10-04 16:02 | NUR ---
PATIENT HAS TEMP OF 99.1 DEGRESS FAHRENHEIT. PATIENT REMAINS SATTING WELL ON SAME AC SETTINGS. PATIENT DID HAVE SEDATION VACATION AND WEAN. PATIENT WAS ON SPONTANEOUS PRESSURE SUPPORT 7/5, 40% FIO2. HR 60S TO 80S. SBP 70S TO 1-TEENS. PATIENT HARD TO RE-SEDATE. HYPOTENSIVE FOR SHORT TIME AFTER PATIENT SUCCESSFULLY RESEDATED. URINE NOW HAS GREEN COLOR TO IT. NO OTHER ACUTE CHANGES TO NOTE ON AT THIS TIME. WILL CONTINUE TO MONITOR.
--- NOTE | 2020-10-04 17:33 | NUR ---
Met with pt advocate to review families concerns. Met with pt and his wifes daughter. They are angry and stressed about his hospitilaization. they were confrontational and agry. They had specific questions about how a tranfer works and his diagnosis, power of immigration attorney and advace directive. Coversation was difficult after letting them vent and then started over and was very aggressive and unfocused. Terminated conversation and advised that I cannot settle their stress. Will try again updated staff.
--- NOTE | 2020-10-04 18:47 | NUR ---
SHIFT SUMMARY PATIENT REMAINED INTUBATED. PATIENT RESPONSIVE TO EITHER VERBAL OR NOXIOUS STIMULI WHEN ON SEDATION. PATIENT HAD A WEAN AND SEDATION VACATION FOR NEARLY 2 HOURS TODAY. PATIENT TOLERATED WELL RESP GILMORE THE WHOLE TIME AND WAS ABLE TO FOLLOW SIMPLE COMMANDS AND NOD/ SHAKE HEAD TO ANSWER YES OR NO QUESTIONS. PATIENT PLACED BACK ON SEDATION FOR APPEARING VERY UNCOMFORTABLE AND BECAUSE HAVING INCREASING ECTOPY. PATIENT ABLE TO MOVE ALL EXTREMITIES. PATIENT GIVEN PRN FENTANYL FOR SIGNS OF PAIN. PATIENT HAD TMAX OF 99.1 DEGREES FAHRENHEIT. LUNGS REMAINED CLEAR TO AUSCULTATION. PATIENT REMAINED ON AC 14, TV 580, PEEP 5 AND 40% FIO2. PATIENT HAD MODERATE AMOUNT OF THICK, YELLOW SPUTUM SUCTIONED FROM ETT. PATIENT REMAINED SB TO SR, WITH BBB, FIRST DEGREE BLOCK, PROLONGED QT, WITH FREQUENT PVCS AND SOME RUNS OF VTACH. DR. HINTON STARTED METOPROLOL PER TUBE TO HELP WITH RUNS. HR 50S TO 80S. SBP 70S TO 140S. BP SOFT AFTER PATIENT RESEDATED. RECTAL TUBE HAD SCANT OUTPUT. NO NUTRITION STARTED YET PER DR. HINTON. OG TO LIS. STREETER DRAINING YELLOW/ GREEN URINE WITH SEDIMENT NOTED. NO CHANGES TO SKIN. PATIENT REPOSITIONED THROUGHOUT SHIFT. SPUTUM CULTURE SENT TO LAB THIS SHIFT. PATIENT GIVEN ALBUMIN, 2 G MAG, 30 MM KPHOS. BLOOD SUGARS 153 AND 176. PATIENT APPEARS COMFORTABLE AT THIS TIME. BED LOW, CALL LIGHT IN REACH. REPORT WILL BE GIVEN TO ASSUMING PLASTIC TOOL MAKER NURSE SHORTLY.
--- NOTE | 2020-10-04 19:00 | NUR ---
ASSUMED CARE NOTE: ASSUMED CARE OF PT AT 1900, RECEVIED REPORT FROM KELLI URENA. PT IS INTUBATED AND SEDATED. PROPOFOL RUNNING AT 50MCG/KG/MIN. VENT SETTINGS AC14/530/5/45% SpO2 ABOVE 90% PT HAVING THICK YELLOW SECRETIONS VIA ETT. ETT PLACEMENT AT 24 AT THE GUMS. PT RESPONS TO PAINFUL STIMULI. MOVING ALL EXTREMTIES WITH NOXIOUS STIMULI. PT IS IN SINUS SULLY, FREQUENT PVCS, BBB, HR IN THE 50'S-60'S. BP STABLE. OGT TO LIS, GREEN DRAINAGE NOTED. RECTAL TUBE IS DRAINING TO GRAVITY, SCANT AMOUNT OF LIQUID STOOL NOTED, SAMPLE SENT TO LAB. LUMP NOTED TO R SIDE OF MIDLINE/UPPER ABD. TEMP STREETER DRAINING TO GRAVITY, GREEN/YELLOW URINE NOTED. SKIN INTACT. RIJ C/D/I. BED AT LOWEST LEVEL, BILAT SWR IN PLACE. WILL CONTINUE TO MONITOR PT T/O SHIFT.
[2020-10-04 23:24] LABS: Campylobacter Sp Not Detected (NOT DETECT)
[2020-10-04 23:25] LABS: Adenovirus F 40/41 Not Detected (NOT DETECT); Astrovirus Not Detected (NOT DETECT); Cryptosporidium Not Detected (NOT DETECT); Cyclospora Cayetanensis Not Detected (NOT DETECT); E. Coli O157 Not Detected (NOT DETECT); Entamoeba Histolytica Not Detected (NOT DETECT); Enteroaggregative E. coli-EAEC Not Detected (NOT DETECT); Enteropathogenic E. coli-EPEC Not Detected (NOT DETECT); Enterotoxigenic E. coli-ETEC Not Detected (NOT DETECT); Giardia Lamblia Not Detected (NOT DETECT); Norovirus GI/GII Not Detected (NOT DETECT); Plesiomonas Shigelloides Not Detected (NOT DETECT); Rotavirus A Not Detected (NOT DETECT); Salmonella Sp Not Detected (NOT DETECT); Sapovirus Not Detected (NOT DETECT); Shiga Toxin-prod E. coli-STEC Not Detected (NOT DETECT); Shigella/Enteroin E. coli-EIEC Not Detected (NOT DETECT); Vibrio Cholerae Not Detected (NOT DETECT); Vibrio Sp Not Detected (NOT DETECT); Yersinia Enterocolitica Not Detected (NOT DETECT)
[2020-10-05 05:22] LABS: BASOPHILS ABSOLUTE AUTO 0.03 K/mm3 (0.00-0.23); BASOPHILS PERCENT AUTO 1 % (0-2); EOSINOPHILS ABSOLUTE AUTO 0.26 K/mm3 (0.00-0.68); EOSINOPHILS PERCENT AUTO 4 % (0-6); Hemoglobin 11.4 g/dL (13.5-17.5); IMMATURE GRAN PERCENT AUTO 2 % (0-1); LYMPHOCYTES ABSOLUTE AUTO 1.63 K/mm3 (0.84-5.20); LYMPHOCYTES PERCENT AUTO 25 % (21-46); MONOCYTES ABSOLUTE AUTO 0.85 K/mm3 (0.16-1.47); MONOCYTES PERCENT AUTO 13 % (4-13); Mean Corpuscular HGB 28.9 pg (26.0-34.0); Mean Corpuscular HGB Conc 32.6 g/dL (31.5-36.5); Mean Corpuscular Volume 89 fL (80-100); Mean Platelet Volume 9.8 fL (9.1-12.4); NEUTROPHILS ABSOLUTE AUTO 3.74 K/mm3 (1.96-9.15); NEUTROPHILS PERCENT AUTO 57 % (41-73); Platelet Count 198 K/mm3 (150-400); RDW Coefficient Variation 15.8 % (11.7-14.2); RDW Standard Deviation 51.8 fL (35.1-46.3); Red Blood Cell Count 3.94 M/mm3 (4.30-5.90); White Blood Cell Count 6.61 K/mm3 (4.00-11.30)
[2020-10-05 05:41] LABS: Albumin, Blood 2.7 g/dL (3.4-5.0); Anion Gap 6 mmol/L (6-16); Blood Urea Nitrogen 9 mg/dL (8-24); Bun/Creatinine Ratio 12.6 (12.0-20.0); CO2, Blood 24 mmol/L (21-32); Calcium, Blood 7.9 mg/dL (8.5-10.1); Chloride, Blood 115 mmol/L (98-108); Creatinine, Blood 0.71 mg/dL (0.60-1.20); Glomerular Filtration Rate >60 (60-); Glucose, Blood 147 mg/dL (70-99); Phosphorus, Blood 2.7 mg/dL (2.5-4.9); Potassium, Blood 3.2 mmol/L (3.5-5.5); Sodium, Blood 145 mmol/L (136-145)
--- NOTE | 2020-10-05 06:00 | NUR ---
SHIFT SUMMARY: PT HAD A SEDATION VACATION AT THIS AM, PROPOFOL TURNED DOWN TO 35MCG/KG/MIN, AFTER 10 MINUTES PT WAS ABLE TO OPEN EYES, FOLLOW SIMPLE COMMANDS. PT NODS YES TO PAIN. PAIN MEDS GIVEN PER EMAR. PT PLACED ON SP VENT MODE PS 10, PEEP 5, FiO2 40% PT TOLERATING VENT CHANGES WELL. PROPOFOL RUNNING AT 40MCG/KG/MIN, FENTANYL PRN GIVEN. PT HAS BEEN IN SINUS SULLY, BBB, FREQUENT PVC'S, HR BETWEEN 40-60. PT HAD 400ML OUTPUT VIA OGT, DARK GREEN DRAINAGE NOTED. STREETER PATENT DRAINING TO GRAVITY. HEPARIN DRIP CHANGED PER PHARMACY RUNNING AT 16U/KG/HR. BED AT LOWEST LEVEL, WILL CONTINUE TO MONITOR PT UNTIL REPORT IS GIVEN TO ONCOMING SHIFT.
--- NOTE | 2020-10-05 12:16 | NUR ---
REASSESSMENT PT REMAINS INTUBATED AND LIGHTLY SEDATED. HE RESTS COMFORTABLE WHEN UNDISTURBED, BUT FOLLOWS SIMPLE COMMANDS WHEN PROMPTED. HE STARTED ON A PRESSURE SUPPORT OF 10, REDUCED TO 7 AND HE CONTINUED TO DO WELL. WHILE AT CT THIS MORNING FIO2 HAD TO BE TURNED UP WHILE PT WAS LYING FLAT AND IS NOW AT 65%. SPO2 HAS BEEN 92-94% SINCE. WILL TITRATE BACK DOWN IF ABLE. LUNGS ARE CLEAR. MODERATE AMT OF SPUTUM PRODUCTION. HR CONTINUES TO BE SINUS SULLY WITH LOTS OF PAC AND PVC. BP STABLE. RARE BOWEL TONES. AWAITING SURGICAL CONSULT. RECTAL TUBE IN PLACE WITH SCANT LIQUID OUTPUT SO FAR TODAY. STREETER WITH YELLOW URINE WITH SMALL SEDIMENT. SPOKE WITH PT'S STEPDAUGHTER VIA PHONE AND PROVIDED UPDATE. CONTINUING TO MONITOR.
--- NOTE | 2020-10-05 16:42 | NUR ---
SHIFT SUMMARY PT IS TO GO TO SURGERY TODAY AT 1730 SO PT REMAINED INTUBATED. STILL IN PS 7, PEEP 5 AND FIO2 ABLE TO BE TITRATED DOWN TO 55%. LUNGS ARE CLEAR. SINSUS SULLY WITH LOTS OF PAC AND PVC. BP STABLE. ABDOMEN DISTENDED, FEELS MORE FIRM THAN THIS MORNING. OG TO LIS WITH MINIMAL OUTPUT. PT'S SON WAS IN THIS AFTERNOON AND WAS UPDATED. HE ASKED AND WAS REMINDED OF VISITING RULES BEING 1 PERSON PER DAY AND HE VERBALIZED THAT BACK. AFTER HE LEFT PT'S STEPDAUGHTER AND SHOWED UP TO SEE PT. THEY WERE TURNED AWAY AT THE SCREENING STATION THEN CALLED AND YELLED AT THE CHARGE NURSE COMPLAINING ABOUT THE VISITING RULES BEFORE HANGING UP ON HIM. DR. CHEW CALLING THEM NOW TO DISCUSS SURGERY.
--- NOTE | 2020-10-05 18:51 | NUR ---
Pt to OR with RT, anesthesiologist and RN.
--- NOTE | 2020-10-05 19:28 | NUR ---
10/05/201927 Nickie Vo PT ENTERED OR WITH STREETER CATHETER AND IS ON SCHEDULED ANTIBIOTICS
--- NOTE | 2020-10-05 21:24 | NUR ---
PT ARRIVED FROM OR AT 2114, CALLED REGARDING HEPARIN DRIP. ORDERS TO HOLD HEPARIN FOR TONIGHT AND REEVALUATE RESTART IN THE AM. PT RETURED WITH VENT SETTINGS AT AC 14/580/10/100% SPO2 AT 92% NO SECRETIONS VIA ETT NOTED. PT PLACED ON PROPOFOL RUNNING AT 45MCG/KG/MIN HE RECEVIED A PRANAV BEFORE COMING TO UNIT. PT HAS NO GAG/COUGH REFLEX AT THIS TIME. PT NOT RESPONDING TO NOXIOUS STIMULI. BILAT PUPILS PIN-POINT , SLUGGISH REACTION TO LIGHT. PT IN SR WITH HR IN THE 60'S, BBB, FREQUENT PVCS NOTED. SBP IN THE 160'S. MIDLINE INCISION CONNECTED TO NELLIE WOUND VAC, SUCTION INDICATOR READING -OK- DRESSING IS C/D/I. ABDOMEN SOFT, DISTENDED. OGT TO LIS. RECTAL TUBE IN PLACE DRAINING TO GRAVITY. STREETER PATENT DRAINING YELLOW/GREEN URINE. WILL CONTINUE TO MONITOR PT
--- NOTE | 2020-10-05 22:54 | NUR ---
UPDATE: CURRENT VENT SETTING VC RATE14, 580, PEEP 7, FiO2 60% SPOKE TO REGARDING SETTINGS. ORDERS TO PLACE PEEP 8, OBTAIN ABG WITHIN AN HOUR, AND XRAY IN THE AM
[2020-10-06 01:53] LABS: PCO2 Arterial 31.8 mmHg (35-45); PO2 Arterial 75.6 mmHg (80-100); pH Blood Arterial 7.44 (7.35-7.45)
[2020-10-06 03:38] LABS: BASOPHILS ABSOLUTE AUTO 0.02 K/mm3 (0.00-0.23); BASOPHILS PERCENT AUTO 0 % (0-2); EOSINOPHILS ABSOLUTE AUTO 0.03 K/mm3 (0.00-0.68); EOSINOPHILS PERCENT AUTO 0 % (0-6); Hematocrit 38.8 % (37.0-53.0); Hemoglobin 12.8 g/dL (13.5-17.5); IMMATURE GRAN ABSOLUTE AUTO 0.15 K/mm3 (0.00-0.10); IMMATURE GRAN PERCENT AUTO 2 % (0-1); LYMPHOCYTES PERCENT AUTO 13 % (21-46); MONOCYTES ABSOLUTE AUTO 1.01 K/mm3 (0.16-1.47); MONOCYTES PERCENT AUTO 11 % (4-13); Mean Corpuscular HGB 29.4 pg (26.0-34.0); Mean Corpuscular Volume 89 fL (80-100); Mean Platelet Volume 9.7 fL (9.1-12.4); NEUTROPHILS ABSOLUTE AUTO 6.52 K/mm3 (1.96-9.15); NEUTROPHILS PERCENT AUTO 73 % (41-73); Platelet Count 204 K/mm3 (150-400); RDW Coefficient Variation 15.7 % (11.7-14.2); RDW Standard Deviation 51.3 fL (35.1-46.3); Red Blood Cell Count 4.35 M/mm3 (4.30-5.90); White Blood Cell Count 8.93 K/mm3 (4.00-11.30)
[2020-10-06 03:58] LABS: Alanine Aminotransfer (ALT/SGP 21 U/L (12-78); Albumin, Blood 2.7 g/dL (3.4-5.0); Albumin/Globulin Ratio 0.9 (0.8-1.8); Alk Phos 53 U/L (50-136); Anion Gap 8 mmol/L (6-16); Aspartate Aminotrans (AST/SGOT 24 U/L (12-37); Bilirubin, Total 0.6 mg/dL (0.1-1.0); Blood Urea Nitrogen 8 mg/dL (8-24); Bun/Creatinine Ratio 12.1 (12.0-20.0); CO2, Blood 23 mmol/L (21-32); Calcium, Blood 7.8 mg/dL (8.5-10.1); Chloride, Blood 114 mmol/L (98-108); Creatinine, Blood 0.66 mg/dL (0.60-1.20); Glomerular Filtration Rate >60 (60-); Glucose, Blood 175 mg/dL (70-99); Magnesium, Blood 1.9 mg/dL (1.6-2.4); Phosphorus, Blood 3.1 mg/dL (2.5-4.9); Potassium, Blood 3.8 mmol/L (3.5-5.5); Sodium, Blood 145 mmol/L (136-145); Total Protein, Blood 5.7 g/dL (6.4-8.2)
--- NOTE | 2020-10-06 04:48 | NUR ---
UPDATE: PT HAS CUFF LEAK, MAY REQUIRE A CUFF EXCHANGE. RT MADE AWARE. ETT PLACEMENT VERIFIED.
--- NOTE | 2020-10-06 06:07 | NUR ---
SHIFT SUMMARY: SEE PREVIOUS NOTES. PT CONTINUES TO BE ON VENT SETTINGS VC 580, RATE 14. PEEP 8, FiO2 45%, SPO2 ABOVE 90% PT CONTINUES TO BE SEDATED WITH PROPOFOL AT 45MCG/KG/HR. PT GIVEN PRN FENTANYL PRN FOR PAIN/SEDATION ADJUCNT WITH GOOD EFFECT. PT HAS BEEN IN SR, WITH HR IN THE 60'S, BBB, WITH PVCS. BP HAS BEEN STABLE POST-OP. OGT TO LIS, 50ML OF GREEN DRAINAGE NOTED. NELLIE WOUND VAC TO MIDLINE INCISION, SCANT AMOUNT OF RED DRAINAGE NOTED TO DRESSING, SUCTION WORKING. RECTAL TUBE WAS REMOVED PT WAS NOT PRODUCING ANY STOOL. STREETER PATENT, DRAINING TO GRAVITY, GOOD URINE OUTPUT. SPOKE TO SON TARAH THIS AM WITH AN UPDATE. BED AT LOWEST LEVEL, WILL CONTINUE TO MONITOR PT UNTIL REPORT IS GIVEN TO ONCOMING SHIFT.
--- NOTE | 2020-10-06 17:23 | NUR ---
SHIFT SUMMARY PT REMAINED INTUBATED THIS SHIFT. HE WAS ON PRESSURE SUPPORT WITH SEDATION STILL ON FOR MOST OF THE SHIFT. THIS AFTERNOON SEDATION WAS TURNED COMPLETELY OFF AND PT WAS ABLE TO FOLLOW SIMPLE COMMANDS, BUT HE MAINTAINED AN UPWARD GAZE. AFTER ABOUT 2 HOURS OFF SEDATION HIS RR INCREASED TO THE 30S AND SPO2 DROPPED TO 88-90%. PAIN MEDICATION GIVEN WITH A LITTLE BIT IMPROVEMENT, BUT SPO2 REMAINED ON THE LOWER END SO DR. HINTON DECIDED TO END WEANING TRIAL. SEDATION INCREASED AND PT PLACED BACK ON AC. HIS LUNGS REMAIN CL. SM AMT OF SPUTUM SUCTIONED TODAY. SR IN THE 60S. PT DID HAVE MORE ECTOPY WHEN SEDATION WAS OFF. BP STABLE. ABODMEN IS STILL DISTENDED. OG TO LIS WITH MINIMAL OUTPUT. BOWEL TONES QUIET. STREETER WITH YELLOW/GREEN TINT. PT'S CAME IN TODAY BEFORE SHE HEADED BACK HOME TO [place]. SHE WAS UPDATED BY NURSING STAFF WELL DR. HINTON. CONTINUING TO MONITOR.
--- NOTE | 2020-10-06 19:00 | NUR ---
ASSUMED CARE NOTE: ASSUMED CARE OF PT AT 1900, RECEVIED REPORT FROM CRICKET URENA. PT SEDATED WITH PROPOFOL RUNNING AT 45MCG/KG/MIN. WILL ATTEMPT TO TITRATE SEDATION TO FULLY ASSESS NEURO STATUS, AND IF PT IS TOLERATING VENT WITH TITRATION. VENT SETTINGS VC 580, RATE 14, PEEP 7 FiO2 50% SPO2 ABOVE 90% PT TOLERATING THE VENT, NO SECRETIONS NOTED WITH ETT SUCTION. PT IN SR WITH HR IN THE 60'S , PT HAVING FREQUENT PVCS, BBB NOTED. MIDLINE NELLIE WOUND VAC INTAKE, NO ACTIVE OOZING NOTED, SUCTION WORKING. OGT CLAMPED FOR PRODUCTION WOOD CRAFTSMAN. STREETER PATENT, DRAINING TO GRAVITY. BED AT LOWEST LEVEL, BILAT SWR IN PLACE. WILL CONTINUE TO MONITOR PT T/O SHIFT.
--- NOTE | 2020-10-07 01:37 | NUR ---
CALLED REGARDING PT FREQUENT PVCS AND SHORT RUNS OF VTACH. PT SBP IN THE 150'S, HR IN THE 60-70'S. ORDERS TO INITIATE AMIO DRIP.
--- NOTE | 2020-10-07 02:31 | NUR ---
SEDATION VACATION/UPDATE PROPOFOL SLOWLY TITRATED DOWN TO 0 AT 0200. PT MOVING ALL EXTREMITIES. FOLLOWING SOME COMMANDS, LEFT BISTRO ATTENDANT WEAKER. PT WAS ABLE TO EXTEND TONGUE OUT APPEARED SYMMETRICAL, HARD TO VISUALIZE FULLY WITH ETT. PT RESTLESS IN THE BED, MOVING EXTREMTIES WITH PURPOSE. REACHING FOR ETT WITH RIGHT HAND. PT NODS "YES" TO PAIN. FENTANYL GIVEN AND PROPOFOL RESTARTED PT WAS NO LONGER TOLERATING VENT. PT HAS AN UPWARD GAZE, PUPILS ARE EQUALLY, ROUND AND REACTIVE, CORNEAL REFLEX PRESENT. PT WAS NOT TRACKING WITH EYES. AMIO DRIP INITIATED. HR 60'S AND SBP 130'S AT THIS TIME.
[2020-10-07 04:21] LABS: BASOPHILS ABSOLUTE AUTO 0.02 K/mm3 (0.00-0.23); BASOPHILS PERCENT AUTO 0 % (0-2); EOSINOPHILS ABSOLUTE AUTO 0.15 K/mm3 (0.00-0.68); EOSINOPHILS PERCENT AUTO 2 % (0-6); Hematocrit 35.5 % (37.0-53.0); Hemoglobin 11.6 g/dL (13.5-17.5); IMMATURE GRAN ABSOLUTE AUTO 0.16 K/mm3 (0.00-0.10); IMMATURE GRAN PERCENT AUTO 2 % (0-1); LYMPHOCYTES ABSOLUTE AUTO 1.63 K/mm3 (0.84-5.20); LYMPHOCYTES PERCENT AUTO 21 % (21-46); MONOCYTES ABSOLUTE AUTO 1.23 K/mm3 (0.16-1.47); MONOCYTES PERCENT AUTO 16 % (4-13); Mean Corpuscular HGB 29.3 pg (26.0-34.0); Mean Corpuscular HGB Conc 32.7 g/dL (31.5-36.5); Mean Corpuscular Volume 90 fL (80-100); NEUTROPHILS PERCENT AUTO 60 % (41-73); Platelet Count 182 K/mm3 (150-400); RDW Coefficient Variation 15.4 % (11.7-14.2); Red Blood Cell Count 3.96 M/mm3 (4.30-5.90); White Blood Cell Count 7.89 K/mm3 (4.00-11.30)
[2020-10-07 04:41] LABS: Alanine Aminotransfer (ALT/SGP 18 U/L (12-78); Albumin, Blood 2.5 g/dL (3.4-5.0); Albumin/Globulin Ratio 0.8 (0.8-1.8); Alk Phos 44 U/L (50-136); Anion Gap 6 mmol/L (6-16); Aspartate Aminotrans (AST/SGOT 19 U/L (12-37); Bilirubin, Total 0.6 mg/dL (0.1-1.0); Blood Urea Nitrogen 12 mg/dL (8-24); Bun/Creatinine Ratio 16.3 (12.0-20.0); CO2, Blood 25 mmol/L (21-32); Calcium, Blood 7.9 mg/dL (8.5-10.1); Chloride, Blood 113 mmol/L (98-108); Creatinine, Blood 0.74 mg/dL (0.60-1.20); Glomerular Filtration Rate >60 (60-); Glucose, Blood 176 mg/dL (70-99); Magnesium, Blood 1.9 mg/dL (1.6-2.4); Potassium, Blood 3.4 mmol/L (3.5-5.5); Sodium, Blood 144 mmol/L (136-145); Total Protein, Blood 5.5 g/dL (6.4-8.2)
--- NOTE | 2020-10-07 05:28 | NUR ---
SHIFT SUMMARY: SEE PREVIOUS NOTES. PT CONTINUES TO FAJARDO, SOME PURPOSFUL MOVEMENTS. PT SEDATED WITH PROPOFOL AT 30MCG/KG/MIN FOR VENT TOLERANCE. PT ALSO GIVEN PRN FENTANYL FOR PAIN. PT CONTINUES TO HAVE UPWARD GAZE, BILAT PUPILS ROUND AND REACTIVE TO LIGHT. PT NOTED TO BE WEAKER ON LEFT SIDE, UNABLE TO FULLY ASSESS HE BECAME AGITIATED WHEN SEDATION WAS LOWERED DURING SEDATION VACATION. NO CHANGES TO VENT SETTINGS, SMALL AMOUNT OF THIN YELLOW/CLEAR SECRETIONS NOTED VIA ETT SUCTION. PT IN SR WITH HR BETWEEN 50-70. FREQUENT PVC'S AND SHORT RUNS OF VTACH. AMIO DRIP AT 1MG/HR. SBP IN THE 140'S AT THIS TIME. NO NEW OUTPUT TO OGT, CONTINUES TO BE TO LIS. UPPER ABD MIDLINE NELLIE WOUND VAC INTACT, AND SUCTION WORKING. NO ACTIVE OOZING NOTED TO NELLIE DRESSING, OLD DRAINAGE NOTED. NO DM THIS SHIFT. STREETER IS PATENT DRAINING TO GRAVITY GREEN/YELLOW URINE NOTED. SCD'S REMAIN IN PLACE. HEPARIN DRIP RUNNING AT 18U/KG/HR PER EMAR. WILL CONTINUE TO MONITOR PT UNTIL REPORT IS GIVEN TO ONCOMING SHIFT.
--- NOTE | 2020-10-07 09:15 | NUR ---
ASSUMED CARE / DR MENEZES: REPORT RECEIVED FROM SYDNEY Hall RN. ASSUMED CARE OF THIS PT AT APPROX 0700 W/ CHELY Almonte, EMERGENCY VETERINARY ASSISTANT, COMPLETING PRIMARY CARE & DOCUMENTATION THIS SHIFT. ON ASSESSMENT, THE PT IS INTUBATED & SEDATED W/ PROPOFOL. HE AWAKENS SOMEWHAT TO PHYSICAL STIMULUS, TURNING HEAD AWAY FROM ORAL CARE. VENT SETTINGS: AC 14/580/7/50%, W/ O2 SATS > 92%. SMALL AMNT THIN CLEAR/RAMIREZ SECRETIONS NOTED W/ ETT SUCTIONING. MONITOR SHOWS SB W/ HR 50s, BP STABLE. STREETER PATENT/ DRAINING YELLOW URINE. OGT CLAMPED AFTER SIZE TESTER, BT x4. MIDLINE NELLIE WOUND VAC IS PATENT W/ GREEN "OK" INDICATOR LIGHT BLINKING. SKIN OTHERWISE INTACT. DR MENEZES AT BEDSIDE TO EVAL PT. HE WOULD LIKE SEDATION VACATION TO BE ATTEMPTED ANSELMO & IS HOPEFUL FOR EXTUBATION THIS AM. WILL CONTINUE TO MONITOR & UPDATE NEEDED.
--- NOTE | 2020-10-07 11:53 | NUR ---
SBT / EXTUBATION: PROPOFOL PLACED ON SB AT 0930 FOR SEDATION VACATION/ SBT. THE PT IS AWAKE, FOLLOWING COMMANDS & EYES ARE NOTED TO BE MIDLINE W/ NO UPWARD GAZE NOTED. DR MENEZES AT BEDSIDE & HAS CHANGED VENT SETTINGS TO SPONTANEOUS W/ PS 12/7 & 50% FIO2, PT TOLERATING WELL & SETTINGS DECREASED TO 10/5 & 50% FIO2. AT 1050, VENT SETTINGS CHANGED TO 100% TUBE COMPENSATION & 40% FIO2. DR MENEZES STS THAT IF THE PT CONTINUES TO TOLERATE THESE SETTINGS WELL FOR APPROX 30 MINS, HE MAY BE EXTUBATED. ANDREWS Lucas, RT, HAS BEEN NOTIFIED. PT EXTUBATED AT 1137 & PLACED ON 3L NC, INCREASED TO 4L AT 1139 FOR O2 SATS 88-91%. PT IS ATTEMPTING TO CLEAR THROAT & ENCOURAGED TO REST VOCAL CORDS. O2 TITRATED UP TO 5L NC FOR DESATS TO 89%, O2 SATS IMPROVED. THE PT's MENTATION DOES NOT APPEAR TO BE FULLY CLEARED, GROSS MOVEMENT OF ALL EXTREMITIES NOTED. THE PT IS LIFING BOTH OF HIS ARMS TO SHOULDER HEIGHT & MOVEMENT IS SOMEWHAT ERRATIC, DOES NOT APPEAR PURPOSEFUL.
--- NOTE | 2020-10-07 16:20 | NUR ---
SHIFT SUMMARY: NO ACUTE CHANGES SINCE PRIOR UPDATES. THE PT REMAINS ORIENTED TO HIMSELF, HIS FAMILY & FOLLOWING SOME DIRECTIONS. HE IS FORGETFUL & NEEDS REMINDERS TO LEAVE NC ON. CURRENTLY ON 15L HI-FLOW NC, O2 SATS > 91% ON AVG, DESATS TO 81% WHEN PT REMOVED O2. HE CONTINUES ATTEMPTING TO CLEAR HIS THROAT REPEATEDLY & HAS SPOKEN VERY LITTLE, STATING "I NEED TO GO HOME" TO HIS SON WHILE PRESENT AT BEDSIDE. MONITOR SHOWS SR W/ HR 70s, BP STABLE. HTN NOTED W/ INCREASED AGITATION. PT REMAINS NPO R/T AMS. STREETER PATENT/ DRAINING DARK YELLOW URINE. MIDLINE NELLIE WOUND VAC IN PLACE TO ABD IS PATENT W/ GREEN "OK" INDICATOR LIGHT FLASHING. BED ALARM ON R/T PT's IMPULSIVITY & ATTEMPTS TO GET OOB. WILL CONTINUE TO MONITOR & REPORT OFF TO ONCOMING RN.
--- NOTE | 2020-10-07 19:30 | NUR ---
ASSESSMENT/ASSUMED CARE PT LYING IN BED TRYING TO CLEAR HIS THROAT. FOLLOWING SOME INSTRUCTIONS. SPEACH SLOW AND QUIET. PT ABLE TO STATE NAME BUT UNSURE OF DATE OR PLACE. REORITENTED FREQUENTLY. LUNGS CLEAR BUT DECREASED IN THE BASES. O2 AT 8 LITERS VIA HIGH FLOW NC. HEART RATE IRREGULAR. BP STABLE. THERAPIST PHYS WEAK, MOVING ALL EXT. BT+ HYPOACTIVE, MIDLINE ABD NELLIE DRSG INTACT. CENTRAL LINE TO RIGHT IJ DRSG INTACT. NS AT 10 ML/HR, HEPARIN AT 18 UNITS/KG/HR AND AMIODARONE AT 0.5 MG/MIN. STREETER CATH PATENT AND DRAINING JASMYNE/YELLOW URINE. PT REPOSTIONED AND ORAL CARE DONE. BED ALARM ON DUE TO PT TRYING TO GET UP, ABLE TO REDIRECT AT THIS TIME.
--- NOTE | 2020-10-07 21:40 | NUR ---
PAIN PT RESTLESS IN BED. WHEN ASKED IF PT IS HAVING PAIN PT STATED,"YES". UNABLE TO EXPRESS WHERE PAIN IS. MED WITH FENTANYL 75 MCQ.
--- NOTE | 2020-10-08 02:34 | NUR ---
AMIODARONE STOPPED AMIODARONE, 24 HR RUN COMPLETE.
--- NOTE | 2020-10-08 02:55 | NUR ---
O2 PT CONT TO TRY AND REMOVE O2 FROM NARES. SPO2 DOWN TO 88% ON 8L HIGH FLOW. INCREASED O2 TO 10 LITERS VIA HIGH FLOW NC.
[2020-10-08 03:41] LABS: BASOPHILS ABSOLUTE AUTO 0.03 K/mm3 (0.00-0.23); BASOPHILS PERCENT AUTO 0 % (0-2); EOSINOPHILS ABSOLUTE AUTO 0.29 K/mm3 (0.00-0.68); EOSINOPHILS PERCENT AUTO 4 % (0-6); Hematocrit 35.6 % (37.0-53.0); Hemoglobin 11.7 g/dL (13.5-17.5); IMMATURE GRAN ABSOLUTE AUTO 0.17 K/mm3 (0.00-0.10); IMMATURE GRAN PERCENT AUTO 2 % (0-1); LYMPHOCYTES ABSOLUTE AUTO 1.82 K/mm3 (0.84-5.20); LYMPHOCYTES PERCENT AUTO 23 % (21-46); MONOCYTES ABSOLUTE AUTO 1.17 K/mm3 (0.16-1.47); MONOCYTES PERCENT AUTO 15 % (4-13); Mean Corpuscular HGB Conc 32.9 g/dL (31.5-36.5); Mean Corpuscular Volume 88 fL (80-100); Mean Platelet Volume 10.2 fL (9.1-12.4); NEUTROPHILS ABSOLUTE AUTO 4.59 K/mm3 (1.96-9.15); NEUTROPHILS PERCENT AUTO 57 % (41-73); Platelet Count 198 K/mm3 (150-400); RDW Coefficient Variation 14.9 % (11.7-14.2); RDW Standard Deviation 47.8 fL (35.1-46.3); Red Blood Cell Count 4.04 M/mm3 (4.30-5.90); White Blood Cell Count 8.07 K/mm3 (4.00-11.30)
[2020-10-08 04:07] LABS: Albumin, Blood 2.4 g/dL (3.4-5.0); Anion Gap 6 mmol/L (6-16); Blood Urea Nitrogen 11 mg/dL (8-24); Bun/Creatinine Ratio 17.1 (12.0-20.0); CO2, Blood 25 mmol/L (21-32); Calcium, Blood 7.8 mg/dL (8.5-10.1); Chloride, Blood 111 mmol/L (98-108); Creatinine, Blood 0.65 mg/dL (0.60-1.20); Glomerular Filtration Rate >60 (60-); Glucose, Blood 168 mg/dL (70-99); Magnesium, Blood 1.7 mg/dL (1.6-2.4); Phosphorus, Blood 2.2 mg/dL (2.5-4.9); Potassium, Blood 3.5 mmol/L (3.5-5.5); Sodium, Blood 142 mmol/L (136-145)
--- NOTE | 2020-10-08 05:59 | NUR ---
SHIFT SUMMARY PT AWAKE ALL NIGHT LONG, FINALLY WENT TO SLEEP ABOUT 0530 AFTER BEING REPOSITIONED. PT RESTLESS ALL NIGHT LONG, TRYING TO CLIMB OUT OF BED, PULLING ON LINES AND REMOVING BP CUFF/O2. PT REORIENTED FREQUENTLY. SPEACH IMPROVED DURING THE NIGHT FROM SLOW AND QUIET TO MORE CLEAR AND ABLE TO MAKE NEEDS KNOWN. PT STATING,"I'M GOING HOME". O2 TITRATED TO 10 LITERS VIA HIGH FLOW NC FROM 8 LITERS HIGH FLOW NC. VSS. AMIODARONE STOPPED AT 0230. POTASSIUM PHOS 30 MMOL INFUSING PER ORDER FROM DR DUKE, PHOS LEVEL 2.2. HEPARING CONT AT 18 UNITS/KG/HR AMD NS AT 10 ML/HR. PT CLEARING THROAT FREQUENTLY. ORAL CARE DONE Q4 HRS AND PRN. REPORT TO ON COMING NURSE.
--- NOTE | 2020-10-08 09:15 | NUR ---
ASSUMED CARE / DR MENEZES: REPORT RECEIVED FROM NYA Giraldo RN. ASSUMED CARE OF THIS PT AT APPROX 0700 W/ CHELY T, CONFIDENTIAL INVESTIGATOR, WHO WILL BE ACTING PRIMARY NURSE & COMPLETING PRIMARY DOCUMENTATION. ON ASSESSMENT, THE PT IS AWAKE. ALERT/ORIENTED TO SELF, PLACE & FOLLOWING DIRECTIONS. HE STS HE DOES NOT KNOW THE MONTH OR YEAR & BECOMES VISIBLY UPSET WHEN UNABLE TO RECALL THAT INFORMATION. PT ON 6L O2 VIA HI-FLOW NC, O2 SATS > 92% ON AVG. MONITOR SHOWS SR W/ FREQUENT PVCs/PACs, HR 60-70s, BP STABLE. ALL PO MEDS HELD THIS AM R/T PERSISTANT AMS. STREETER PATENT/ DRAINING DARK YELLOW URINE. MIDLINE NELLIE IN PLACE TO ABD, PT DENIES ABD PAIN & IS ABLE TO "HUG" A PILLOW DURING REPOSITIONING TO MINIMIZE PAIN OCCURENCE. SKIN CONDITION OTHERWISE INTACT, Q2H REPOSITIONING TO MAINTAIN SKIN INTEGRITY. DR MENEZES AT BEDSIDE TO EVAL PT. HE WOULD LIKE PHYSICAL, OCCUPATIONAL & SPEECH THERAPIES TO BE ORDERED FOR THE PT & IS HOPEFUL TO DOWNGRADE THE PT's STATUS IF HE CONTINUES IMPROVING. WILL CONTINUE TO MONITOR & UPDATE NEEDED.
--- NOTE | 2020-10-08 11:40 | NUR ---
DR CHEW: PROVIDER AT BEDSIDE TO EVAL PT THIS AM. NOTIFIED HIM OF PENDING ST EVAL & HE STS OKAY FOR PT TO HAVE CLEAR LIQUIDS FROM SURGICAL STANDPOINT.
--- NOTE | 2020-10-08 17:11 | NUR ---
SHIFT SUMMARY: NO ACUTE CHANGES SINCE PRIOR UPDATES. PT REMAINS ALERT/ORIENTED TO SELF, FAMILY, FOLLOWING DIRECTIONS & LOCATION. RESPONDS WELL TO REORIENTATION & ASKS FOR ASSISTANCE APPROPRIATELY. HE REMAINS EMOTIONAL AT TIMES & BECOMES FRUSTRATED W/ HIMSELF EASILY WHEN UNABLE TO REMEMBER THINGS OR FEELING PHYSICALLY WEAK. PT ON 4L NC W/ O2 SATS > 92%. MONITOR SHOWS SB-SR W/ FREQUENT PVCs/PACs, HR 50-70s, BP STABLE. ABDOMEN REMAINS TENDER TO PALPATION OR W/ MOVEMENT. PT TOLERATING PO INTAKE OF CLEARS WELL BUT DENIES OVERALL HUNGER. HE HAS HAD NUMEROUS BROWN LIQUID BMs THIS SHIFT. HE HAS BEEN ABLE TO ASK APPROPRIATELY FOR THE BEDPAN BUT DOES HAVE SOME URGENCY INCONTINENCE OF STL. STREETER PATENT/ DRAINING DARK YELLOW URINE. MIDLINE NELLIE WOUND VAC IN PLACE TO ABD, SMALL AMNT OF NEW DRAINAGE NOTED UNDER DRESSING HAS BEEN OUTLINED IN PERMANENT MARKER. SKIN CONDITION OVERALL CDI W/ Q2H REPOSITIONING COMPLETED TO MAINTAIN SKIN INTEGRITY. WILL CONTINUE TO MONITOR & REPORT OFF TO ONCOMING RN.
[2020-10-09 04:13] LABS: BASOPHILS ABSOLUTE AUTO 0.02 K/mm3 (0.00-0.23); BASOPHILS PERCENT AUTO 0 % (0-2); EOSINOPHILS ABSOLUTE AUTO 0.29 K/mm3 (0.00-0.68); EOSINOPHILS PERCENT AUTO 3 % (0-6); Hematocrit 35.3 % (37.0-53.0); Hemoglobin 11.5 g/dL (13.5-17.5); IMMATURE GRAN PERCENT AUTO 1 % (0-1); LYMPHOCYTES ABSOLUTE AUTO 1.62 K/mm3 (0.84-5.20); LYMPHOCYTES PERCENT AUTO 19 % (21-46); MONOCYTES ABSOLUTE AUTO 0.89 K/mm3 (0.16-1.47); MONOCYTES PERCENT AUTO 10 % (4-13); Mean Corpuscular HGB Conc 32.6 g/dL (31.5-36.5); Mean Corpuscular Volume 89 fL (80-100); Mean Platelet Volume 10.4 fL (9.1-12.4); NEUTROPHILS ABSOLUTE AUTO 5.71 K/mm3 (1.96-9.15); NEUTROPHILS PERCENT AUTO 66 % (41-73); Platelet Count 223 K/mm3 (150-400); RDW Coefficient Variation 15.1 % (11.7-14.2); RDW Standard Deviation 49.2 fL (35.1-46.3); Red Blood Cell Count 3.97 M/mm3 (4.30-5.90); White Blood Cell Count 8.63 K/mm3 (4.00-11.30)
[2020-10-09 04:32] LABS: Alanine Aminotransfer (ALT/SGP 63 U/L (12-78); Albumin, Blood 2.2 g/dL (3.4-5.0); Albumin/Globulin Ratio 0.7 (0.8-1.8); Alk Phos 60 U/L (50-136); Anion Gap 6 mmol/L (6-16); Aspartate Aminotrans (AST/SGOT 79 U/L (12-37); Bilirubin, Total 0.5 mg/dL (0.1-1.0); Blood Urea Nitrogen 15 mg/dL (8-24); Bun/Creatinine Ratio 20.2 (12.0-20.0); CO2, Blood 25 mmol/L (21-32); Calcium, Blood 7.8 mg/dL (8.5-10.1); Chloride, Blood 111 mmol/L (98-108); Creatinine, Blood 0.74 mg/dL (0.60-1.20); Globulin, Blood 3.2 g/dL (2.2-4.0); Glomerular Filtration Rate >60 (60-); Glucose, Blood 157 mg/dL (70-99); Magnesium, Blood 1.8 mg/dL (1.6-2.4); Potassium, Blood 3.4 mmol/L (3.5-5.5); Sodium, Blood 142 mmol/L (136-145); Total Protein, Blood 5.4 g/dL (6.4-8.2)
--- NOTE | 2020-10-09 06:00 | NUR ---
PT STATES HE SLEPT WELL, WHEN UNDISTURBED. HAS BEEN MED W FENTANYL SEVERAL TIMES W GOOD RESULT, PAIN RATINGS DECREASING FROM "9", "7", "5". PT CONT W WHISPER VOICE; WITH ENCOURAGEMENT, ABLE TO VERBALIZE NEEDS. OCCAS ANXIOUS, AND CAN APPEAR DEMANDING: "SHUT THE BLINDS", "HOW LONG AM I GOING TO HAVE TO DO THIS", "WATER!". ENCOURAGEMENT OFFERED THAT HE IS DOING SO MUCH BETTER. O2 4LNC W HUMIDITY. PT HAS BEEN OFFERED NECTAR THICK CLEAR LIQUIDS PER SPEECH RECOMMENDATIONS. HAS CALLED FOR BEDPAN W RESULT OF UNFORMED BILIOUS BROWN STOOL. ABD IS DISTENDED, BUT SOFT. RIJ DC'D WO DIFFICULTY.
--- NOTE | 2020-10-09 08:00 | NUR ---
INITIAL ASSESSMENT PATIENT ALERT AND ORIENTED X 4. SOFT SPOKEN. CANTWELL. PATIENT WITHDRAWN AND IRRITABLE AND ANXIOUS AT TIMES. PATIENT DIFFICULT TO UNDERSTAND AT TIMES. PATIENT WEAK BUT ABLE TO MOVE ALL EXTREMITIES. PATIENT AFEBRILE. PATIENT DENIES ABDOMINAL PAIN OR ANY OTHER PAIN AT THIS TIME. PATIENT SATTING 90% AND GREATER ON 4 L HUMIDIFIED NC. LUNGS CLEAR IN UPPER LOBES AND DIMINISHED IN LOWER LOBES. PATIENT HAS OCCASIONAL COUGH. PATIENT IN SR WITH BBB AND PVCS. HR 60S TO 70S. SBP 1-TEENS TO 120S. 1+ EDEMA NOTED IN BILAT FEET. ABDOMEN MODERATELY DISTENDED, FIRM, TENDER, WITH HYPOACTIVE BS NOTED. ATTENDS IN PLACE FOR INCONTINENCE. PATIENT HAVING BROWN, LIQUID STOOLS. STREETER IN PLACE DRAINING YELLOW COLORED URINE. SCATTERED BRUISES NOTED. NELLIE TO MIDLINE ABD; DRESSING C/D/I. NS TKO. HEPARIN AT 18 UNITS/ KG/ HOUR. BED LOW, CALL LIGHT IN REACH. WILL CONTINUE TO MONITOR PATIENT FREQUENTLY THROUGHOUT SHIFT.
--- NOTE | 2020-10-09 09:00 | NUR ---
DR. MENEZES UPDATED ON PATIENT STATUS. INFORMED THAT PATIENT RECEIVING 20 MM KPHOS FOR POTASSIUM OF 3.4 THIS AM. INFORMED THAT PATIENT HAS NOT BEEN SEEN BY MOLD MAKER SINCE 10/02. NO ORDERS RECEIVED AT THIS TIME.
--- NOTE | 2020-10-09 10:50 | NUR ---
SPOKE TO DR. CHEW CONCERNING PATIENT DIET. DOCTOR STATED THAT CAN INCREASED DIET TOLERATED. DOCTOR ALSO STATED THAT, IN HIS OPINION, PATIENT CAN BE TRANSITIONED FROM HEPARIN DRIP TO COUMADIN. SPEECH THERAPY CALLED AND INFORMED THAT PATIENT DIET CAN BE ADVANCED TOLERATED. DR. YEE INFORMED THAT NAINA SAID PATIENT CAN BE TRANSISTIONED FROM HEPARIN DRIP TO COUMADIN. NAKIA ALSO INFORMED THAT CARDIOLOGY HAS NOT SEEN PATIENT SINCE 10/02. DR. YEE STATED TO CONTACT CARDIOLOGY TO HAVE THEM FOLLOWUP.
--- NOTE | 2020-10-09 11:15 | NUR ---
DR. JEFFERS CONTACTED ABOUT FOLLOWING UP ON PATIENT. DOCTOR STATED SHE WOULD CALL BACK.
--- NOTE | 2020-10-09 12:15 | NUR ---
DR. JEFFERS CALLED BACK. UPDATED ON PATIENT STATUS. STATED SHE WOULD COME BY TO SEE PATIENT THIS AFTERNOON.
--- NOTE | 2020-10-09 12:30 | NUR ---
PATIENT AFEBRILE. HR 70S TO 80S. SBP 1-TEENS TO 140S. PATIENT REMAINS SATTING 90% AND GREATER ON 4 L NC. NO OTHER ACUTE CHANGES TO NOTE ON AT THIS TIME. WILL CONTINUE TO MONITOR.
--- NOTE | 2020-10-09 13:42 | NUR ---
SHIFT SUMMARY PATIENT HAS REMAINED A AND O X 4. KIVALINA. SOFT VOICE. PATIENT IRRITABLE AND ANXIOUS AT TIMES. PATIENT WEAK. PT AND OT WORKED WITH PATIENT THIS SHIFT. PATIENT REMAINS SATTING 90% AND GREATER ON 4 L HUMIDIFIED NC. PATIENT HAS REMAINED IN SR WITH BBB AND PVCS. HR 60S TO 80S. SBP 1-TEENS TO 140S. ABD REMAINS MODERATELY DISTENDED, FIRM, TENDER, WITH HYPOACTIVE BS. 4 BROWN, LIQUID BMS THIS SHIFT. PATIENT INCREASED TO MECHANICAL SOFT DIET PER SPEECH THERAPY. STREETER REMAINS DRAINING YELLOW COLORED URINE. NO CHANGE TO SKIN. PATIENT REPOSITIONED Q2H. NS TKO. HEPARIN REMAINS AT 18 UNITS/ KG/ HOUR. PATIENT RECEIVED 20 MM KPHOS FOR POTASSIUM OF 3.4. PATIENT TO BE TRANSFERRED TO SURGICAL FLOOR, ROOM 229 SHORTLY.
--- NOTE | 2020-10-09 13:56 | NUR ---
PATIENT SUCCESSFULLY TRANSFERRED TO SURGICAL FLOOR, ROOM 229. ALL BELONGINGS SENT WITH PATIENT. TRANSFER COMPLETE. SURGICAL FLOOR NURSE STATED THAT SHE WOULD CALL FAMILY TO LET THEM KNOW OF FLOOR/ ROOM TRANSFER.
--- NOTE | 2020-10-09 14:24 | NUR ---
TARAH SEGAL'S SON CALLED MESSAGE LEFT ON HIS PHONE RE HIS TRANSFER OIRENTED TO ROOM LAYOUT
--- NOTE | 2020-10-09 18:21 | NUR ---
SHIFT SUMMARY PT TRANSFERED FROM ICU TO SURG FLOOR TODAY. VITALS HAVE BEEN STABLE. NO NAUSEA/VOMITING REPORTED. PT IS A/O X4. NELLIE DRAIN DRESSING HAS MARKED DRY DRAINAGE. CONTINENT OF BOWEL MOVEMENT. BOWEL MOVEMENT HAS SWEET SMELL AND IS BLACKISH GREEN WITH COFFEE GROUND CONSISTENCY. PT REPORTED CRAMPINESS IN ABDOMEN THAT WAS RELIEVED BY BOWEL MOVEMENT. STREETER IS DRAINING. PT IS GAINING STRENGTH AND WAS ABLE TO EAT ON HIS OWN. WILL REPORT TO ONCOMING RN.
--- NOTE | 2020-10-09 18:50 | NUR ---
RECEIVED REPORT AND ASSUMED CARE OF PT. HE IS UP TO THE BEDSIDE COMMODE WITH SUPERVISION, 2 PERSON ASSIST BACK TO BED. JUNIOR.
[2020-10-10 05:59] LABS: BASOPHILS ABSOLUTE AUTO 0.02 K/mm3 (0.00-0.23); BASOPHILS PERCENT AUTO 0 % (0-2); EOSINOPHILS PERCENT AUTO 4 % (0-6); Hematocrit 32.9 % (37.0-53.0); IMMATURE GRAN PERCENT AUTO 1 % (0-1); LYMPHOCYTES ABSOLUTE AUTO 1.69 K/mm3 (0.84-5.20); LYMPHOCYTES PERCENT AUTO 22 % (21-46); MONOCYTES ABSOLUTE AUTO 0.93 K/mm3 (0.16-1.47); MONOCYTES PERCENT AUTO 12 % (4-13); Mean Corpuscular HGB 29.6 pg (26.0-34.0); Mean Corpuscular HGB Conc 33.4 g/dL (31.5-36.5); Mean Corpuscular Volume 88 fL (80-100); Mean Platelet Volume 10.5 fL (9.1-12.4); NEUTROPHILS ABSOLUTE AUTO 4.51 K/mm3 (1.96-9.15); NEUTROPHILS PERCENT AUTO 60 % (41-73); Platelet Count 237 K/mm3 (150-400); RDW Coefficient Variation 15.1 % (11.7-14.2); RDW Standard Deviation 48.6 fL (35.1-46.3); Red Blood Cell Count 3.72 M/mm3 (4.30-5.90); White Blood Cell Count 7.55 K/mm3 (4.00-11.30)
[2020-10-10 06:14] LABS: International Normalized Ratio 1.29; Prothrombin Time Results 13.7 Sec (9.7-11.5)
[2020-10-10 06:18] LABS: Alanine Aminotransfer (ALT/SGP 51 U/L (12-78); Albumin, Blood 2.3 g/dL (3.4-5.0); Albumin/Globulin Ratio 0.7 (0.8-1.8); Alk Phos 55 U/L (50-136); Anion Gap 5 mmol/L (6-16); Aspartate Aminotrans (AST/SGOT 37 U/L (12-37); Bilirubin, Total 0.4 mg/dL (0.1-1.0); Blood Urea Nitrogen 14 mg/dL (8-24); Bun/Creatinine Ratio 18.6 (12.0-20.0); CO2, Blood 26 mmol/L (21-32); Calcium, Blood 7.7 mg/dL (8.5-10.1); Chloride, Blood 113 mmol/L (98-108); Creatinine, Blood 0.75 mg/dL (0.60-1.20); Globulin, Blood 3.2 g/dL (2.2-4.0); Glomerular Filtration Rate >60 (60-); Glucose, Blood 192 mg/dL (70-99); Magnesium, Blood 2.2 mg/dL (1.6-2.4); Potassium, Blood 3.5 mmol/L (3.5-5.5); Sodium, Blood 144 mmol/L (136-145); Total Protein, Blood 5.5 g/dL (6.4-8.2)
--- NOTE | 2020-10-10 07:59 | NUR ---
SHIFT SUMMARY: JOEL IS A&OX3 WITH EPISODES OF INTERMITTENT BRIEF CONFUSION NOTED. VSS, NO ACUTE EVENTS OVERNIGHT. POWERGLIDE TO SEFERINO PATENT, IV TO L FA PATENT. HE IS TOLERATING PO INTAKE WELL, NECTAR THICK AND MECH SOFT DIET ORDERED. HE IS A TWO PERSON ASSIST TO THE BEDSIDE COMMODE. ATTENDS IN PLACE. STREETER DRAINING DARK YELLOW URINE. HE REPORTS ADEQUATE PAIN CONTROL WITH 50 MCG OF FENTANYL. O2 @ 2 L VIA NC, CONTINUOUS BIOX IN PLACE. HE DOES DESATURATE DURING SLEEP. HE IS LYING IN BED WITH THE CALL LIGHT IN REACH. HIS 'S PHONE NUMBER WAS GIVEN TO THE DAY SHIFT RN ALONG WITH THE REQUEST FROM HIS FOR THE DOCTOR TO CALL HER AND GIVE AN UPDATE TODAY. REPORT GIVEN TO DAY SHIFT RN.
--- NOTE | 2020-10-10 09:49 | NUR ---
SPOKE WITH DR YEE ABOUT PT HAVING FREQUENT BLACKISH GREEN LIQUID STOOLS. HE REQUESTED THAT WE REPORT THE STOOLS TO DR CHEW, GENERAL SURGEON. DR YEE REQUESTED LABS FOR POTASSIUM AND H&H TO BE REPEATED AT 1600. PRIMARY NURSE Lucila CARCAMO TO RECEIVE AND PLACE ORDERS. PT CURRENTLY SITTING UP IN BED, ATE BREAKFAST AND REPORTS NO NAUSEA AT THIS TIME.
[2020-10-10 16:56] LABS: Hematocrit 33.2 % (37.0-53.0); Hemoglobin 10.8 g/dL (13.5-17.5)
--- NOTE | 2020-10-10 17:07 | NUR ---
SHIFT SUMMARY PT MAKING GREAT PROGRESS TODAY. PT WORKED WITH PHYISICAL THERAPY AND OCCUPATIONAL THERAPY AND WAS ABLE TO TRANSFER WITH FWW TO CHAIR AND TO BEDSIDE COMMODE. VITAL SIGNS HAVE BEEN STABLE. PT WAS SWITCHED FROM IV ANTIBIOTICS AND IV PAIN MEDICATION TO ORAL MEDICATION TODAY. BOWEL MOVEMENTS ARE STILL FREQUENT AND LOOSE BUT NOT LIQUID AT THIS TIME. PT ABLE TO FEEL WHEN HE NEEDED TO HAVE BM MINUS ONE TIME TODAY. ABDOMINAL DRESSING HAS RED DRY BLOOD THAT WAS MARKED YESTERDAY, AND HAS HAD NO CHANGES TODAY. PT STATES THAT ABDOMEN IS STILL VERY TENDER AND DISTENDED. BOWEL SOUNDS HYPOACTIVE THIS AM AND HYPERACTIVE THIS EVENING. PT BEING TREATED PER EMAR FOR INCREASED CBG LEVELS. PT IN GOOD SPIRITS AND HAPPY TO BE MAKING IMPROVEMENTS. WILL REPORT TO ONCOMING RN.
[2020-10-10 17:16] LABS: Anion Gap 3 mmol/L (6-16); Blood Urea Nitrogen 12 mg/dL (8-24); Bun/Creatinine Ratio 15.2 (12.0-20.0); CO2, Blood 27 mmol/L (21-32); Calcium, Blood 8.1 mg/dL (8.5-10.1); Chloride, Blood 113 mmol/L (98-108); Creatinine, Blood 0.79 mg/dL (0.60-1.20); Glomerular Filtration Rate >60 (60-); Glucose, Blood 256 mg/dL (70-99); Potassium, Blood 4.1 mmol/L (3.5-5.5); Sodium, Blood 143 mmol/L (136-145)
--- NOTE | 2020-10-10 18:40 | NUR ---
RECEIVED REPORT AND ASSUMED CARE OF PT. HE IS ALERT, SITTING UP IN BED TALKING ON THE PHONE. DENIES ANY NEEDS AT THIS TIME. WCTM.
[2020-10-11 04:57] LABS: BASOPHILS ABSOLUTE AUTO 0.02 K/mm3 (0.00-0.23); BASOPHILS PERCENT AUTO 0 % (0-2); EOSINOPHILS ABSOLUTE AUTO 0.27 K/mm3 (0.00-0.68); EOSINOPHILS PERCENT AUTO 3 % (0-6); Hematocrit 34.1 % (37.0-53.0); Hemoglobin 11.2 g/dL (13.5-17.5); IMMATURE GRAN ABSOLUTE AUTO 0.09 K/mm3 (0.00-0.10); IMMATURE GRAN PERCENT AUTO 1 % (0-1); LYMPHOCYTES ABSOLUTE AUTO 2.31 K/mm3 (0.84-5.20); LYMPHOCYTES PERCENT AUTO 28 % (21-46); MONOCYTES ABSOLUTE AUTO 0.78 K/mm3 (0.16-1.47); MONOCYTES PERCENT AUTO 9 % (4-13); Mean Corpuscular HGB 29.6 pg (26.0-34.0); Mean Corpuscular HGB Conc 32.8 g/dL (31.5-36.5); Mean Corpuscular Volume 90 fL (80-100); Mean Platelet Volume 10.9 fL (9.1-12.4); NEUTROPHILS ABSOLUTE AUTO 4.94 K/mm3 (1.96-9.15); NEUTROPHILS PERCENT AUTO 59 % (41-73); Platelet Count 280 K/mm3 (150-400); RDW Coefficient Variation 15.3 % (11.7-14.2); RDW Standard Deviation 50.4 fL (35.1-46.3); Red Blood Cell Count 3.78 M/mm3 (4.30-5.90); White Blood Cell Count 8.41 K/mm3 (4.00-11.30)
[2020-10-11 05:19] LABS: Prothrombin Time Results 45.4 Sec (9.7-11.5)
[2020-10-11 05:25] LABS: Alanine Aminotransfer (ALT/SGP 52 U/L (12-78); Albumin, Blood 2.5 g/dL (3.4-5.0); Albumin/Globulin Ratio 0.8 (0.8-1.8); Alk Phos 59 U/L (50-136); Anion Gap 5 mmol/L (6-16); Aspartate Aminotrans (AST/SGOT 30 U/L (12-37); Bilirubin, Total 0.5 mg/dL (0.1-1.0); Blood Urea Nitrogen 10 mg/dL (8-24); Bun/Creatinine Ratio 12.7 (12.0-20.0); CO2, Blood 27 mmol/L (21-32); Calcium, Blood 8.2 mg/dL (8.5-10.1); Chloride, Blood 110 mmol/L (98-108); Creatinine, Blood 0.79 mg/dL (0.60-1.20); Globulin, Blood 3.3 g/dL (2.2-4.0); Glomerular Filtration Rate >60 (60-); Glucose, Blood 190 mg/dL (70-99); International Normalized Ratio 4.58; Magnesium, Blood 1.9 mg/dL (1.6-2.4); Potassium, Blood 3.5 mmol/L (3.5-5.5); Sodium, Blood 142 mmol/L (136-145); Total Protein, Blood 5.8 g/dL (6.4-8.2)
--- NOTE | 2020-10-11 06:46 | NUR ---
SHIFT SUMMARY: JOEL AROUSES EASILY AND RESPONDS APPROPRIATELY. HE DOES SHOW OCCASIONAL MILD CONFUSION, OCCASIONALLY PULLING AT LINES WHEN HE NEEDS TO GET UP AND USE THE RESTROOM INSTEAD OF USING THE CALL LIGHT. HE IS PLEASANT AND COOPERATIVE. ENTRESTO AND COREG GIVEN EARLY PER VERBAL ORDER FROM DR. PLATT. HE IS TOLERATING PO INTAKE WELL, NO EPISODE OF COUGHING OR CHOKING DURING PO INTAKE THIS SHIFT. HE IS A ONE TO TWO PERSON ASSIST TO THE BEDSIDE COMMODE. STREETER DRAINING DARK YELLOW URINE, COLOR DRY MILL OPERATOR THAN YESTERDAY. VSS, HE HAS REMOVED HIS OXYGEN A FEW TIMES DURING THE NIGHT, CONTINUOUS BIOX IN PLACE. HE IS CURRENTLY MAINTAINING HIS SATS >90% ORA. HE IS SITTING IN BED WITH THE CALL LIGHT IN REACH. WILL REPORT TO DAY SHIFT RN.
--- NOTE | 2020-10-11 12:52 | NUR ---
[employer] ALERTED THIS RN THAT PT HAD A 10BEAT RUN OF Unyqe. LET HOSPITALIST KNOW WHO ASKED ME TO CALL CARDIOLOGY. SPOKE WITH DR. PLATT. CONFIRMED THAT PATIENT WAS ASYMPTOMATIC, SITTING UP EATING LUNCH AND TALKING ON THE PHONE. ORDERS RECIEVED TO INCREASE CARVEDILOL TO 12.5MG BID AND GIVE A X1 DOSE OF 6.25MG NOW.
--- NOTE | 2020-10-11 17:27 | NUR ---
SHIFT SUMMARY POD 6 R SHANIKA COLECTOMY AA0X4, NO CONFUSION NOTED TODAY. FREQUENT BOWEL MOVEMENTS, INC AT TIMES. COLOR IS BROWN AT THIS TIME NOT BLACK NOTICED IN STOOL. PT STRENGTH INCREASING ABLE TO TRANSFER WELL WITH 1 ASSIST. HE REPORTS FEELING MUCH BETTER TODAY. DECLINED PAIN DURING SHIFT, WORKED WITH PT/OT AND SPENT MOST OF THE SHIFT IN HIS CHAIR. PLAN IS TO CONTINUE STRENGTHENING WHILE DISCHARGE PLAN IS CONFIRMED.
--- NOTE | 2020-10-11 18:09 | NUR ---
SPOKE WITH PATIENT REGARDING PLANS FOR DISCHARGE. THE LAST TIME I SPOKE WITH HIM HE WAS HOPING TO GET HOME HEALTH FOLLOW UP IN [place]. WHEN I BROUGHT IT UP TO HIM HE ADAMANTLY STATED THAT HE WOULD BE DOING HOME HEALTH HERE WITH HIS SON, HE DID NOT WANT TO RETURN TO [place] FOR THERAPY. HE STATED HE WOULD GO HOME WHEN HE IS STRONG ENOUGH AND ON HIS OWN TERMS. HE ASKED ME TO MAKE SURE THE HVAC SERVICE TECHNICIAN IS AWARE OF HIS WISHES. I WILL PASS ON THE THE ONCOMING RN I WAS UNABLE TO REACH A HVAC SERVICE TECHNICIAN AT THIS TIME.
[2020-10-12 04:33] LABS: BASOPHILS ABSOLUTE AUTO 0.03 K/mm3 (0.00-0.23); BASOPHILS PERCENT AUTO 0 % (0-2); EOSINOPHILS ABSOLUTE AUTO 0.21 K/mm3 (0.00-0.68); EOSINOPHILS PERCENT AUTO 2 % (0-6); Hemoglobin 10.8 g/dL (13.5-17.5); IMMATURE GRAN ABSOLUTE AUTO 0.09 K/mm3 (0.00-0.10); IMMATURE GRAN PERCENT AUTO 1 % (0-1); LYMPHOCYTES ABSOLUTE AUTO 2.14 K/mm3 (0.84-5.20); LYMPHOCYTES PERCENT AUTO 25 % (21-46); MONOCYTES ABSOLUTE AUTO 0.87 K/mm3 (0.16-1.47); MONOCYTES PERCENT AUTO 10 % (4-13); Mean Corpuscular HGB 29.3 pg (26.0-34.0); Mean Corpuscular HGB Conc 32.7 g/dL (31.5-36.5); Mean Corpuscular Volume 90 fL (80-100); Mean Platelet Volume 10.8 fL (9.1-12.4); NEUTROPHILS ABSOLUTE AUTO 5.36 K/mm3 (1.96-9.15); NEUTROPHILS PERCENT AUTO 62 % (41-73); Platelet Count 269 K/mm3 (150-400); RDW Standard Deviation 48.8 fL (35.1-46.3); Red Blood Cell Count 3.68 M/mm3 (4.30-5.90)
[2020-10-12 04:48] LABS: Anion Gap 3 mmol/L (6-16); Blood Urea Nitrogen 9 mg/dL (8-24); CO2, Blood 27 mmol/L (21-32); Calcium, Blood 7.8 mg/dL (8.5-10.1); Chloride, Blood 111 mmol/L (98-108); Creatinine, Blood 0.75 mg/dL (0.60-1.20); Glomerular Filtration Rate >60 (60-); Glucose, Blood 182 mg/dL (70-99); Magnesium, Blood 1.9 mg/dL (1.6-2.4); Potassium, Blood 3.9 mmol/L (3.5-5.5); Sodium, Blood 141 mmol/L (136-145)
--- NOTE | 2020-10-12 04:51 | NUR ---
SUMMARY SALES AND BUSINESS DEVELOPMENT MANAGER AT BEDSIDE AT SHIFT CHANGE. PT VERBALIZING HE DOES NOT WISH TO RETURN TO [place] INITIALLY UPON DISCHARGE. VERB HE WOULD RATHER DISCHARGE TO [facility]. SALES AND BUSINESS DEVELOPMENT MANAGER DISCUSSED THIS WITH PATIENT AND ADVISED WOULD NEED TO FURTHER EXPLORE OPTIONS DEPENDING ON PTS PROGRESSION OF RECOVERY HERE PRIOR TO DISCHARGE.PT CURRENTLY STILL REQUIRING 3 L N/C TO MAINTAIN GREATER THAN 90% PT ABLE TO AMBULATE WITH 1 MOD ASSIST AND FWW.PT STILL HAS STREETER PER ORDERS. PT ALSO ASKING QUESTIONS REGARDING R PNEUMONIA AND PE RESOLUTION.I DISCUSSED WITH PT NEED TO BE ON BLOOD THINNERS AND CURRENTLY ON ANTIBIOTIC.ALSO ADVISED PT WE WILL ASK DR TO SPEAK WITH HIM REGARDING THIS AND ANY OTHER QUESTIONS OR CONCERNS HE MIGHT HAVE WITH ROUNDS TODAY.
[2020-10-12 04:53] LABS: Prothrombin Time Results 69.7 Sec (9.7-11.5)
[2020-10-12 04:56] LABS: International Normalized Ratio 7.22
--- NOTE | 2020-10-12 10:47 | NUR ---
Gwendolyn RUTLEDGE, TELE HEAD TENNIS PROFESSIONAL ADVISED PT HAD 9 BEAT RUN VTACH. SENT TELE STRIP. PT DENIES CP, N/V OR SOB. NOTIFIED DR YEE. NO NEW ORDERS.
--- NOTE | 2020-10-12 16:14 | NUR ---
SON AT BEDSIDE.
--- NOTE | 2020-10-12 17:51 | NUR ---
SHIFT SUMMARY POD 7 PARTIAL R HEMICOLECTOMY. A&OX4. PT WORKED WITH PHYSICAL THERAPY THIS AM. NO COMPLAINTS OF PAIN, NAUSEA OR SOB. TOLERATING MECH SOFT DIET. TAKING PILLS WHOLE IN APPLESAUCE. BLOOD SUGARS STABLE. VITAL SIGNS STABLE. PT UP TO CHAIR BRIEFLY DURING DINNER. STREETER CATHETER DC'D-PT VOIDED. CONTINUES TO HAVE UNFORMED STOOLS. FIBERCON STARTED TODAY PER ORDERS. CALL LIGHT IN REACH.
[2020-10-13 04:57] LABS: BASOPHILS ABSOLUTE AUTO 0.03 K/mm3 (0.00-0.23); BASOPHILS PERCENT AUTO 0 % (0-2); EOSINOPHILS ABSOLUTE AUTO 0.23 K/mm3 (0.00-0.68); EOSINOPHILS PERCENT AUTO 3 % (0-6); Hematocrit 33.6 % (37.0-53.0); IMMATURE GRAN ABSOLUTE AUTO 0.09 K/mm3 (0.00-0.10); IMMATURE GRAN PERCENT AUTO 1 % (0-1); LYMPHOCYTES ABSOLUTE AUTO 2.38 K/mm3 (0.84-5.20); LYMPHOCYTES PERCENT AUTO 27 % (21-46); MONOCYTES ABSOLUTE AUTO 0.99 K/mm3 (0.16-1.47); MONOCYTES PERCENT AUTO 11 % (4-13); Mean Corpuscular HGB 29.3 pg (26.0-34.0); Mean Corpuscular HGB Conc 32.7 g/dL (31.5-36.5); Mean Corpuscular Volume 89 fL (80-100); Mean Platelet Volume 10.5 fL (9.1-12.4); NEUTROPHILS ABSOLUTE AUTO 5.26 K/mm3 (1.96-9.15); NEUTROPHILS PERCENT AUTO 59 % (41-73); Platelet Count 306 K/mm3 (150-400); RDW Coefficient Variation 14.9 % (11.7-14.2); RDW Standard Deviation 47.9 fL (35.1-46.3); Red Blood Cell Count 3.76 M/mm3 (4.30-5.90); White Blood Cell Count 8.98 K/mm3 (4.00-11.30)
[2020-10-13 05:17] LABS: Alanine Aminotransfer (ALT/SGP 47 U/L (12-78); Albumin, Blood 2.6 g/dL (3.4-5.0); Albumin/Globulin Ratio 0.8 (0.8-1.8); Alk Phos 57 U/L (50-136); Anion Gap 3 mmol/L (6-16); Aspartate Aminotrans (AST/SGOT 31 U/L (12-37); Bilirubin, Total 0.4 mg/dL (0.1-1.0); Blood Urea Nitrogen 7 mg/dL (8-24); Bun/Creatinine Ratio 9.2 (12.0-20.0); CO2, Blood 27 mmol/L (21-32); Calcium, Blood 8.2 mg/dL (8.5-10.1); Chloride, Blood 107 mmol/L (98-108); Creatinine, Blood 0.76 mg/dL (0.60-1.20); Globulin, Blood 3.2 g/dL (2.2-4.0); Glomerular Filtration Rate >60 (60-); Glucose, Blood 185 mg/dL (70-99); Magnesium, Blood 1.7 mg/dL (1.6-2.4); Phosphorus, Blood 2.9 mg/dL (2.5-4.9); Potassium, Blood 3.8 mmol/L (3.5-5.5); Sodium, Blood 137 mmol/L (136-145); Total Protein, Blood 5.8 g/dL (6.4-8.2)
[2020-10-13 05:18] LABS: Prothrombin Time Results 58.4 Sec (9.7-11.5)
[2020-10-13 05:22] LABS: International Normalized Ratio 5.98
--- NOTE | 2020-10-13 07:28 | NUR ---
SUMMARY PT UP AND DOWN TO CHAIR TONIGHT. GETTING STRONGER.VOIDING WITHOUT DIFF.MED FOR PAIN THIS AM.
[2020-10-13 14:15] LABS: Potassium, Blood 4.8 mmol/L (3.5-5.5)
--- NOTE | 2020-10-13 14:18 | NUR ---
NOTIFIED DR YEE OF 1400 MAG/K LAB RESULTS. NO NEW ORDERS.
--- NOTE | 2020-10-13 18:05 | NUR ---
SHIFT SUMMARY: A&0X4. UTILIZES FWW W/ 1 PERSON ASSIST W/ GAITBELT FOR TRANSFER AND AMBULATION. UP TO CHAIR A COUPLE TIMES DURING SHIFT. PAIN MEDS ADMINISTERED PRN PER EMAR. TOLERATING MECH SOFT DIET. TAKING PILLS WHOLE IN APPLESAUCE. RESPIRATIONS EASY ON RA, O2 SATURATIONS IN LOW 90S. CALL LIGHT IN REACH.
[2020-10-14 04:12] LABS: BASOPHILS ABSOLUTE AUTO 0.04 K/mm3 (0.00-0.23); BASOPHILS PERCENT AUTO 1 % (0-2); EOSINOPHILS PERCENT AUTO 2 % (0-6); Hematocrit 37.4 % (37.0-53.0); Hemoglobin 12.2 g/dL (13.5-17.5); IMMATURE GRAN ABSOLUTE AUTO 0.09 K/mm3 (0.00-0.10); IMMATURE GRAN PERCENT AUTO 1 % (0-1); LYMPHOCYTES ABSOLUTE AUTO 2.27 K/mm3 (0.84-5.20); LYMPHOCYTES PERCENT AUTO 28 % (21-46); MONOCYTES PERCENT AUTO 11 % (4-13); Mean Corpuscular HGB 28.9 pg (26.0-34.0); Mean Corpuscular HGB Conc 32.6 g/dL (31.5-36.5); Mean Corpuscular Volume 89 fL (80-100); Mean Platelet Volume 10.5 fL (9.1-12.4); NEUTROPHILS PERCENT AUTO 57 % (41-73); Platelet Count 361 K/mm3 (150-400); RDW Coefficient Variation 14.9 % (11.7-14.2); RDW Standard Deviation 47.6 fL (35.1-46.3); Red Blood Cell Count 4.22 M/mm3 (4.30-5.90)
[2020-10-14 04:30] LABS: Anion Gap 4 mmol/L (6-16); Blood Urea Nitrogen 6 mg/dL (8-24); Bun/Creatinine Ratio 7.8 (12.0-20.0); CO2, Blood 28 mmol/L (21-32); Calcium, Blood 8.3 mg/dL (8.5-10.1); Chloride, Blood 104 mmol/L (98-108); Creatinine, Blood 0.77 mg/dL (0.60-1.20); Glomerular Filtration Rate >60 (60-); Glucose, Blood 184 mg/dL (70-99); Magnesium, Blood 1.9 mg/dL (1.6-2.4); Potassium, Blood 3.7 mmol/L (3.5-5.5); Sodium, Blood 136 mmol/L (136-145)
[2020-10-14 04:31] LABS: Prothrombin Time Results 40.1 Sec (9.7-11.5)
[2020-10-14 04:40] LABS: International Normalized Ratio 4.02
--- NOTE | 2020-10-14 06:40 | NUR ---
SHIFT SUMMARY SITTING UP ON THE SIDE OF THE BED WITH EYES OPEN, HAS RESTED OFF AND ON THIS SHIFT. AAO X4, FAJARDO, FOLLOWS ALL COMMANDS. GIVE PRN PAIN MEDS PER EMAR. LEFT WRIST PIV IS PATENT, FLUSHES WITH EASE. RIGHT UPPER ARM POWERGLIDE IS PATENT, FLUSHES WITH EASE. MIDLINE NELLIE DRESSING IS COMPRESSED, C/D/I. NO SIGNIFICANT CHANGES NOTED THIS SHIFT. DENIES PAIN, DISCOMFORT, OR FURTHER NEEDS AT THIS TIME. SAFETY MEASURES IN PLACE. WILL CONTINUE TO MONITOR AND ADDRESS CHANGES AND NEEDS THEY ARISE. WILL GIVE HAND OFF TO ONCOMING SHIFT USING SBAR DURING BEDSIDE REPORT.
--- NOTE | 2020-10-14 07:30 | NUR ---
recvd report from previous shift RN Sarah, pt lying in bed, a/o x 4, pleasant/cooperative. pt requesting pain medication, will medicate per mar. call light within reach, bed rails up x 2, bed in lowest position.
[2020-10-14 14:11] LABS: SARS-Cov-2 (COVID-19) PCR, MMC NEGATIVE (NEGATIVE)
--- NOTE | 2020-10-14 14:13 | NUR ---
pt's son here visiting. [facility] of [facility]-19. removed periphal IV and [employer] [place] WNL.
--- NOTE | 2020-10-14 14:30 | NUR ---
pt transported with belongings on his lap via wheelchair to awaiting wheelchair transport van. pt's son notified of room number and visitation guidelines at [facility]
[2020-10-16 17:11] LABS: ACT. PRT C RESIST W/FV DEFIC. 2.8 ratio (.); APTT 25.1 sec (.); DRVVT RATIO 1.2 ratio (.); DRVVT SCREEN SECONDS 54.8 sec (.); FACTOR VIII ACTIVITY 272 % (.); HEXAGONAL PHOSPHOLIPID NEUTRAL 0 sec (.); HOMOCYSTEINE 6.3 umol/L (.); PRT C ACTIVITY (CHROMOGENIC) 95 % (.)
== END 2020-10-14 14:36 | DRG 329 ==
LOC: ER 23:37 → MEDS 09-29 04:47 → PCU 09-30 01:56 → ICUW 09-30 09:36 → SURS 09-30 09:36 → PCU 09-30 09:36 → ICUW 10-01 16:08 → SURS 10-09 14:07
PROVIDERS: Emergency Medicine; Family Medicine; Internal Medicine; Internal Medicine Cardiovascular Disease; Internal Medicine Critical Care Medicine; Pharmacist; Student in an Organized Health Care Education/Training Program; ADMIT Internal Medicine
PROC: 0BH17EZ Insertion of Endotracheal Airway into Trachea, Via Natural or Artificial Opening (ICD-10-PCS; 2020-10-01)
PROC: 5A1955Z Respiratory Ventilation, Greater than 96 Consecutive Hours (ICD-10-PCS; 2020-10-01)
PROC: 02HV33Z Insertion of Infusion Device into Superior Vena Cava, Percutaneous Approach (ICD-10-PCS; 2020-10-01)
PROC: 3E043XZ Introduction of Vasopressor into Central Vein, Percutaneous Approach (ICD-10-PCS; 2020-10-01)
PROC: 0DBK0ZZ Excision of Ascending Colon, Open Approach (ICD-10-PCS; principal; 2020-10-06)
DX: K63.0 Abscess of intestine (principal); K63.1 Perforation of intestine (nontraumatic); J96.01 Acute respiratory failure with hypoxia; A41.9 Sepsis, unspecified organism; R65.21 Severe sepsis with septic shock; G92 Toxic encephalopathy; I26.99 Other pulmonary embolism without acute cor pulmonale; J18.9 Pneumonia, unspecified organism; I50.22 Chronic systolic (congestive) heart failure; I42.9 Cardiomyopathy, unspecified; K56.7 Ileus, unspecified; Z20.822 Contact with and (suspected) exposure to COVID-19; E83.42 Hypomagnesemia; R79.89 Other specified abnormal findings of blood chemistry; E87.6 Hypokalemia; Z68.30 Body mass index [BMI] 30.0-30.9, adult; I44.0 Atrioventricular block, first degree; I45.10 Unspecified right bundle-branch block; I48.0 Paroxysmal atrial fibrillation; E66.9 Obesity, unspecified; R79.1 Abnormal coagulation profile; K21.9 Gastro-esophageal reflux disease without esophagitis; N40.0 Benign prostatic hyperplasia without lower urinary tract symptoms; I11.0 Hypertensive heart disease with heart failure; E11.9 Type 2 diabetes mellitus without complications; E78.5 Hyperlipidemia, unspecified; I25.10 Atherosclerotic heart disease of native coronary artery without angina pectoris; Z79.84 Long term (current) use of oral hypoglycemic drugs; Z79.899 Other long term (current) drug therapy; Z95.1 Presence of aortocoronary bypass graft; Z86.010 Personal history of colon polyps; Z87.891 Personal history of nicotine dependence; Z90.49 Acquired absence of other specified parts of digestive tract
CPT/HCPCS: 0097U; 31500; 36415; 36556; 36600; 51702; 71045; 71260; 74018; 74176; 74177; 80048; 80053; 80069; 81001; 81240; 82803; 82947; 83090; 83605; 83735; 83880; 84100; 84132; 84484; 85014; 85018; 85025; 85240; 85300; 85303; 85306; 85307; 85379; 85610; 85613; 85730; 85732; 86140; 86146; 86147; 87040; 87070; 87205; 88307; 92526; 92610; 93005; 93010; 93306; 93308; 93321; 93970; 94002; 94003; 94640; 94660; 94762; 96365; 96366; 96367; 96372; 96375; 96376; 97110; 97112; 97116; 97162; 97166; 97530; 99285; A9270; C1751; C9113; G0378; J0282; J0744; J1170; J1644; J1650; J1940; J2250; J2370; J2405; J2543; J2704; J3010; J3475; J3480; J7030; J7040; J7060; J7120; P9046; Q9967; U0004

== ENCOUNTER → 2022-07-03 | Outpatient (CLI) | payer MEDICARE ==
[~2022-07-03] MED LIST: AMARYL1 M1 PO; AMLO5 PO; ASPI81CH PO; B-121000 MC7 PO; Coreg12.5 MG PO; Crestor20 MG PO; ENTRESTO 49 MG1 EACH PO; FAMO40 PO; FINA5 PO; FURO20 PO; Flomax0.4 MG PO; JARDIANCE10 MG PO; METF500 PO; NITR.4SL SL; OMEP20ER PO; SITA25T2 PO; VITAMIN D325 MC3 PO
[2022-07-03 15:02] LABS: Protein, Urine Quantitative 8.5 mg/dL (0.0-11.9)
[2022-07-03 15:12] LABS: Creatinine Urine 66.7 mg/dL (27.00-270.00); Microalbumin, Urine Quant. 5.35 mg/L (0.000-20.000)
== END | disposition home or self-care (01) ==
LOC: LAB SHORT 08:00
PROVIDERS: Internal Medicine Nephrology
DX: N18.30 Chronic kidney disease, stage 3 unspecified (principal); D63.1 Anemia in chronic kidney disease; N25.81 Secondary hyperparathyroidism of renal origin; E55.9 Vitamin D deficiency, unspecified; E78.00 Pure hypercholesterolemia, unspecified; R76.9 Abnormal immunological finding in serum, unspecified; R94.5 Abnormal results of liver function studies; R94.6 Abnormal results of thyroid function studies
CPT/HCPCS: 81050; 82043; 82570; 84156